=== PATIENT | female | born 1985 | race Caucasian/White ===

== ENCOUNTER 2020-08-08 10:19 | Emergency (ER) | payer OTHER, SELFPAY ==
[2020-08-08 12:26] VITALS: BP 149/98; PULSE 98; RESP 16; TEMP 36.7; O2SAT 100; BMI 31.1
--- NOTE | 2020-08-08 12:48 | ED.DENTAL ---
HPI - Dental/Oral General Chief complaint: Dental/Oral Stated complaint: abcess in mouth Time Seen by Provider: 08/08/20 12:46 Source: patient Mode of arrival: ambulatory Limitations: no limitations History of Present Illness HPI Narrative: 35 y/o female presenting 7 days post tooth extraction presenting with worsening pain and swelling. She was seen by her dentist who performed the procedure 3 days afterwards with worsening pain. Her jaw bone was visible at the extraction site and he told her he might need to shave it down if new gum does not grow over it. She was given Clindamycin and has been taking Ibuprofen for the last 3 days without improvement in the pain. She noticed new swelling and redness behind the site of the extraction that is very tender to touch. She denies facial swelling, MD Complaint: tooth pain Location: Tooth # (18) Onset (ago): day(s) (5) Duration: constant Severity: severe Severity scale (1-10): 10 Relieving factors: NSAIDs Exacerbating factors: chewing, heat and swallowing Treatment prior to arrival: none Related Data Previous Rx's Medication Instructions Recorded amoxicillin-pot clavulanate 1 tab PO BID #14 tab 08/08/20 [Augmentin] fluconazole [Diflucan] 150 mg PO ONCE #1 tab 08/08/20 hydrocodone-acetaminophen 1 tab PO Q6H PRN #8 tab 08/08/20 ibuprofen 600 mg PO Q8H PRN #20 tab 08/08/20 Allergies Allergy/AdvReac Type Severity Reaction Status Date / Time acetaminophen [From Percocet] AdvReac Palpitation Verified 08/08/20 12:32 s morphine AdvReac Palpitation Verified 08/08/20 12:33 s oxycodone [From Percocet] AdvReac Palpitation Verified 08/08/20 12:32 s From DEMEROL AdvReac Intermediate TACHYCARDIA Uncoded 08/08/20 12:31 Review of Systems Review of Systems: Constitutional: No Fever, No Chills ENT/Mouth: No sore throat, No Rhinorrhea, No Swallowing Difficulty, +Dental pain Eyes: No Eye Pain, No Swelling, No Redness Cardiovascular: No Chest Pain, No SOB Respiratory: No Cough, No Sputum Gastrointestinal: No Nausea, No Vomiting, No Diarrhea, No abdominal Pain Neuro: No Weakness, No Numbness, No Dizziness, + Headache Heme/Lymph: No Bruising, + Lymphadenopathy PMFSH Past Medical History Attestation statement: The following information was validated with the patient. Medical History Anxiety Asthma Seasonal allergies Surgical History (Updated 08/08/20 @ 12:30 by Asia Dotson) H/O partial thyroidectomy H/O tubal ligation History of appendectomy Social History Social History Advance Directives: Yes Advance Directives Information Provided: No Advance Directives on File: No Patient : No Physical Exam Vital Signs: Vital Signs: Last Vital Signs Temp 98.0 F 08/08/20 12:26 Pulse 98 08/08/20 12:26 Resp 16 08/08/20 12:26 BP 149/98 H 08/08/20 12:26 Pulse Ox 100 08/08/20 12:26 Body Mass Index 31.1 Const: General: cooperative, healthy appearing and anxious HENMT: Head: Yes normal to inspection, Yes normocephalic and Yes atraumatic Ears: hearing grossly normal bilaterally General nose exam: Normal external nose present Face and sinus: Yes normal facial exam and Yes sinuses nontender Mouth: Normal oral and palatal mucosa present, lip normal, tongue normal, oropharynx normal and moist mucous membranes Teeth and gingiva: abnormal tooth and associated gingiva lower left third molar and gingiva abnormal edematous and tender Throat: Yes posterior oropharynx normal, Yes tonsils normal and Yes uvula midline Eyes: General: appearance normal, both eyes and all related structures Neck: Neck: Yes normal visual inspection, Yes full ROM and Yes no lymphadenopathy Chest: Chest palpation & inspection: normal inspection of the chest Resp: Effort & Inspection: normal respiratory effort and able to speak in complete sentences Extrem: General: Yes normal to inspection Psych: Appearance: grossly normal and well kempt Mental Status: mental status grossly normal Speech and movement: Normal speech and movement present and Clear speech present Course Course Course Narrative: 35 y/o female presenting with dental pain 1 week after extraction. She has swelling, ertythema and tenderness on exam just posterior to the site without area of fluctuance. No facial swelling. Her bone is visible at the site of extraction, likely leading to acute abscess. No drainable collection at this time. Will change to Augmentin and provide short course of narcotic pain medication until she can be seen on Tuesday morning. She is agreeable with plan. Emergency dental numbers provided and patient encouraged to f/u [facility]. Stable for D/C. Discharge Plan Discharge Clinical Impression: Dental abscess Patient Disposition: Home, Self-Care Instructions: Dental Abscess (ED) Additional Instructions: Follow up with a dentist [facility]. Emergency numbers given - try calling them today. Start taking the prescribed antibiotic. Take Ibuprofen 600-800 mg every 6 hours. Take with food. Take Vicoden as needed for severe pain. Do not smoke cigarettes. Do not use straws, or eat hot food. If you have worsening pain, facial swelling, fever, or any other concerns come back to the ER for further evaluation. Prescriptions: New amoxicillin-pot clavulanate [Augmentin] 875-125 mg tablet 1 tab PO BID Qty: 14 RF: 0 ibuprofen 600 mg tablet 600 mg PO Q8H PRN (Reason: pain) Qty: 20 RF: 0 hydrocodone-acetaminophen 5-325 mg tablet 1 tab PO Q6H PRN (Reason: pain) Qty: 8 RF: 0 fluconazole [Diflucan] 150 mg tablet 150 mg PO ONCE Qty: 1 RF: 0 Stand Alone Forms: Dental Emergency Numbers
[2020-08-08] MEDS: Ketorolac Tromethamine 60 MG/2 ML VIAL IM (13:19)
== END 2020-08-08 13:30 | disposition home or self-care (01) ==
PROVIDERS: Emergency Provider Internal Medicine
DX: K12.2 Cellulitis and abscess of mouth (principal); Z79.899 Other long term (current) drug therapy
CPT/HCPCS: 96372; 99284; J1885

== ENCOUNTER 2020-11-06 19:15 | Emergency (ER) | payer OTHER, SELFPAY ==
--- NOTE | ~2020-11-06 | XR_ITS ---
EXAMINATION: XR ANKLE, RIGHT CLINICAL INFORMATION: Fall. Pain. COMPARISON: None TECHNIQUE: 3 views of the right ankle. FINDINGS: The bones and soft tissues are normal. No fracture. Alignment is anatomic. Joint spaces are maintained. No joint effusion. XR/XR ankle RT min 3V IMPRESSION: Normal right ankle.
--- NOTE | ~2020-11-06 | XR_ITS ---
EXAMINATION: 1. LEFT HIP. 2. LEFT FEMUR. 3. LEFT KNEE. 4. LEFT TIBIA AND FIBULA. CLINICAL INFORMATION: Fall. Pain. COMPARISON: None TECHNIQUE: 1. Left hip. Frontal view of pelvis. Cone-down oblique and frontal view of the left hip. 2. Left femur. 2 views 3. Left knee. 3 views. 4. Left lower leg. 2 views FINDINGS: 1. Left hip. No fracture of pelvis. Left hip is normal. There is no fracture dislocation of the hip. 2. Left femur. No fracture of left femur. 3. Left knee. No fracture or dislocation of the knee. There is no joint effusion. 4. Left lower leg. No fracture of the tibia or fibula. Ankle joint is unremarkable. XR/XR hip LT w PEL1V IMPRESSION: 1. Left hip. Normal pelvis and left hip. 2. Left femur. Normal left femur. 3. Left knee. Normal left knee. 4. Left lower leg. Normal left lower leg.
--- NOTE | ~2020-11-06 | XR_ITS ---
EXAMINATION: 1. LEFT HIP. 2. LEFT FEMUR. 3. LEFT KNEE. 4. LEFT TIBIA AND FIBULA. CLINICAL INFORMATION: Fall. Pain. COMPARISON: None TECHNIQUE: 1. Left hip. Frontal view of pelvis. Cone-down oblique and frontal view of the left hip. 2. Left femur. 2 views 3. Left knee. 3 views. 4. Left lower leg. 2 views FINDINGS: 1. Left hip. No fracture of pelvis. Left hip is normal. There is no fracture dislocation of the hip. 2. Left femur. No fracture of left femur. 3. Left knee. No fracture or dislocation of the knee. There is no joint effusion. 4. Left lower leg. No fracture of the tibia or fibula. Ankle joint is unremarkable. XR/XR femur LT 2V IMPRESSION: 1. Left hip. Normal pelvis and left hip. 2. Left femur. Normal left femur. 3. Left knee. Normal left knee. 4. Left lower leg. Normal left lower leg.
--- NOTE | ~2020-11-06 | XR_ITS ---
EXAMINATION: 1. LEFT HIP. 2. LEFT FEMUR. 3. LEFT KNEE. 4. LEFT TIBIA AND FIBULA. CLINICAL INFORMATION: Fall. Pain. COMPARISON: None TECHNIQUE: 1. Left hip. Frontal view of pelvis. Cone-down oblique and frontal view of the left hip. 2. Left femur. 2 views 3. Left knee. 3 views. 4. Left lower leg. 2 views FINDINGS: 1. Left hip. No fracture of pelvis. Left hip is normal. There is no fracture dislocation of the hip. 2. Left femur. No fracture of left femur. 3. Left knee. No fracture or dislocation of the knee. There is no joint effusion. 4. Left lower leg. No fracture of the tibia or fibula. Ankle joint is unremarkable. XR/XR knee LT 2V IMPRESSION: 1. Left hip. Normal pelvis and left hip. 2. Left femur. Normal left femur. 3. Left knee. Normal left knee. 4. Left lower leg. Normal left lower leg.
--- NOTE | ~2020-11-06 | XR_ITS ---
EXAMINATION: 1. LEFT HIP. 2. LEFT FEMUR. 3. LEFT KNEE. 4. LEFT TIBIA AND FIBULA. CLINICAL INFORMATION: Fall. Pain. COMPARISON: None TECHNIQUE: 1. Left hip. Frontal view of pelvis. Cone-down oblique and frontal view of the left hip. 2. Left femur. 2 views 3. Left knee. 3 views. 4. Left lower leg. 2 views FINDINGS: 1. Left hip. No fracture of pelvis. Left hip is normal. There is no fracture dislocation of the hip. 2. Left femur. No fracture of left femur. 3. Left knee. No fracture or dislocation of the knee. There is no joint effusion. 4. Left lower leg. No fracture of the tibia or fibula. Ankle joint is unremarkable. XR/XR tibia fibula LT 2V IMPRESSION: 1. Left hip. Normal pelvis and left hip. 2. Left femur. Normal left femur. 3. Left knee. Normal left knee. 4. Left lower leg. Normal left lower leg.
[2020-11-06 21:34] VITALS: BP 155/92; PULSE 108; RESP 16; TEMP 37.6; O2SAT 100; BMI 32.1
--- NOTE | 2020-11-06 22:55 | ED_ITS ---
HPI - Extremity Injury (Lower) General Chief Complaint: Extremity Injury, Lower Stated Complaint: leg inj Time Seen by Provider: 11/06/20 22:55 Source: patient Mode of arrival: ambulatory Limitations: no limitations History of Present Illness HPI Narrative: 35-year-old female came in for evaluation after sustained a fall while hiking. Patient is complaining of multiple injuries but unable to bear weight on the lef t knee. No head or neck injuries, no LOC. Related Data Previous Rx's Medication Instructions Recorded amoxicillin 875 mg-potassium 1 tab PO BID #14 tab 08/08/20 clavulanate 125 mg tablet (Augmentin) fluconazole 150 mg tablet 150 mg PO ONCE #1 tab 08/08/20 (Diflucan) hydrocodone 5 mg-acetaminophen 325 1 tab PO Q6H PRN #8 tab 08/08/20 mg tablet ibuprofen 600 mg tablet 600 mg PO Q8H PRN #20 tab 08/08/20 Allergies Allergy/AdvReac Type Severity Reaction Status Date / Time acetaminophen [From Percocet] AdvReac Palpitation Verified 11/06/20 21:39 s morphine AdvReac Palpitation Verified 11/06/20 21:39 s oxycodone [From Percocet] AdvReac Palpitation Verified 11/06/20 21:39 s From DEMEROL AdvReac Intermediate TACHYCARDIA Uncoded 11/06/20 21:39 Review of Systems Review of Systems: All other systems are reviewed and are negative Constitutional: Reports as per HPI and Reports no additional constitutional complaints Eyes: Reports as per HPI and Reports no additional eye complaints Reports system reviewed and no additional complaints, except as documented Cardiovascular: Reports as per HPI and Reports no additional cardiovascular complaints Respiratory: Reports as per HPI and Reports no additional respiratory complaints Gastrointestinal: Reports as per HPI and Reports no additional gastrointestinal complaints Genitourinary: Reports no additional female genitourinary complaints Musculoskeletal: Reports no additional musculoskeletal complaints Skin/Breast: Reports system reviewed and no additional complaints, except as docu Psychiatric: Reports no additional psychiatric complaints Endocrine: Reports no additional endocrine complaints Hematologic/Lymphatic: Reports no additional hematologic/lymphatic complaints Allergic/Immunologic: Reports no additional allergic/immunologic complaints Reports system reviewed and no additional complaints, except as documented and Reports Abnormal speech [facility] Past Medical History Medical History Anxiety Asthma Seasonal allergies Surgical History H/O partial thyroidectomy H/O tubal ligation History of appendectomy Social History Social History Advance Directives: No Advance Directives Information Provided: No Patient : No Physical Exam Vital Signs: Vital Signs: Last Vital Signs Temp 99.7 F 11/06/20 21:34 Pulse 108 H 11/06/20 21:34 Resp 16 11/06/20 21:34 BP 155/92 H 11/06/20 21:34 Pulse Ox 100 11/06/20 21:34 Body Mass Index 32.1 Vital signs have been reviewed as appeared to be correct. Blood pressure elevated. Heart rate elevated. Respiration rate normal. Temperature normal. Oxygen saturation normal. Appearance: Alert. Oriented X3. No acute distress. Head: Normal external exam. Normocephalic. Atraumatic. No Melvin signs noted. No raccoon eyes noted Eyes: PERRLA. EOMI. Conjunctiva and sclera normal. Eyelids normal. ENT: TM's Normal. Pharynx normal. Uvula midline. Moist mucous membranes. No trismus noted. No drooling noted. No muffled voice noted. Neck: Normal inspection. Neck supple. FROM. No adenopathy. Thyroid Normal. No meningeal signs. No neck mass noted. CVS: Normal heart rate and rhythm. Heart sound normal. No murmurs noted. Pulses normal throughout. Respiratory: No respiratory distress. Painless inspiration. Breath sounds n ormal. No wheezes/rales/rhonchi noted. Chest nontender. No accessory muscle usage noted or decreased air movement noted. Abdomen: Soft and nontender. Bowel sounds normal in all 4 quadrants. No diste ntion noted. No organomegaly noted. No visible injury noted. Back: No CVA tenderness. Full range of motion noted. Skin: Skin warm and dry. Normal skin color. Normal skin turgor. No rashes/lesions/lacerations noted. Extremities: Right arm 3 x 5 cm area of ecchymosis, no deformity, no step-off, neurovascularly intact. Left knee exam held in a flexion position, patient unable to bear weight on the left knee due to pain. Neuro: Oriented X 3. Cranial nerve exam: II-XII are grossly intact No motor deficit. No sensory deficit. Reflexes normal. Course Course Course Narrative: Assessment and plan. 35-year-old female came in after injured her left lower extremities while hiking. X-ray showed no acute fracture however patient unable to bear weight. Patient stated that she usually have a subtle fracture that only showed by CT or MRI. Since it is 23:00 MRI is not available only CT scan was offered to the patient but patient will not wait for the CT rather to go home and follow-up with PCP and get tested as an outpatient. Ice, NSAIDs, knee immobilizer, and no bear weight crutches, and follow-up with PCP. MDM - Extremity Injury (Lower) Imaging Data Left hip/left femur/left knee/left knee tib-fib: Radiologist's impression: 1. Left hip. No fracture of pelvis. Left hip is normal. There is no fracture dislocation of the hip. 2. Left femur. No fracture of left femur. 3. Left knee. No fracture or dislocation of the knee. There is no joint effusion. 4. Left lower leg. No fracture of the tibia or fibula. Ankle joint is unremarkable.? Discharge Plan Discharge Clinical Impression: Contusion of knee, left, Contusion Patient Disposition: Home, Self-Care Instructions: Contusion in Adults (ED) Prescriptions: No Action amoxicillin-pot clavulanate [Augmentin] 875-125 mg tablet 1 tab PO BID Qty: 14 RF: 0 ibuprofen 600 mg tablet 600 mg PO Q8H PRN (Reason: pain) Qty: 20 RF: 0 hydrocodone-acetaminophen 5-325 mg tablet 1 tab PO Q6H PRN (Reason: pain) Qty: 8 RF: 0 fluconazole [Diflucan] 150 mg tablet 150 mg PO ONCE Qty: 1 RF: 0 Referrals: Physician,Unknown [Primary Care Provider] - 2 days Stand Alone Forms: Work/School Release
[2020-11-06] MEDS: Ibuprofen 600 MG TABLET PO (23:20)
== END 2020-11-06 23:08 | disposition home or self-care (01) ==
PROVIDERS: Emergency Provider Emergency Medicine
DX: S80.02XA Contusion of left knee, initial encounter (principal); S40.021A Contusion of right upper arm, initial encounter; W18.30XA Fall on same level, unspecified, initial encounter; Y93.31 Activity, mountain climbing, rock climbing and wall climbing; Y92.828 Other wilderness area as the place of occurrence of the external cause; Y99.8 Other external cause status
CPT/HCPCS: 73502; 73552; 73560; 73590; 73610; 99283; 99284

== ENCOUNTER 2020-12-26 11:50 | Outpatient (REF) | payer OTHER, SELFPAY | END 2020-12-26 11:51 | disposition home or self-care (01) | LOC: HO.LAB 11:50 | PROVIDERS: Visit Provider Internal Medicine | DX: Z20.822 Contact with and (suspected) exposure to COVID-19 (principal) | CPT/HCPCS: C9803; U0003; U0005 ==

== ENCOUNTER 2022-04-20 13:10 | Outpatient (REF) | payer OTHER, SELFPAY ==
--- NOTE | ~2022-04-20 | XR_ITS ---
EXAMINATION: XR CERVICAL SPINE CLINICAL INFORMATION: Neck pain COMPARISON: None TECHNIQUE: 3 views of the cervical spine were obtained. FINDINGS: There is mild reversal of cervical lordosis. The vertebral heights, alignment and disc heights are normal. No visible acute fracture, dislocation or subluxation seen. The prevertebral and paravertebral soft tissues are normal. XR/XR cervical spine 2V IMPRESSION: Mild reversal of cervical lordosis likely spasm. No visible acute fracture, dislocation or subluxation seen.
== END 2022-04-20 13:11 | disposition home or self-care (01) ==
LOC: HO.XRAY 13:10
PROVIDERS: PCP Internal Medicine; Visit Provider Psychiatry & Neurology Neurology
DX: M54.2 Cervicalgia (principal)
CPT/HCPCS: 72040

== ENCOUNTER 2022-06-09 08:03 | Outpatient (REF) | payer OTHER, SELFPAY ==
--- NOTE | ~2022-06-09 | XR_ITS ---
EXAMINATION: XR SACROILIAC JOINTS CLINICAL INFORMATION: Low back pain. COMPARISON: None available. TECHNIQUE: 3 views of the sacroiliac joints FINDINGS: Bones and soft tissues are normal. No fracture. Alignment is anatomic. Sacroiliac joint spaces are well-maintained without erosions or surrounding sclerosis. XR/XR sacroiliac joint min 3V IMPRESSION: Normal sacroiliac joints.
== END 2022-06-09 08:04 | disposition home or self-care (01) ==
LOC: HO.XRAY 08:03
PROVIDERS: PCP Internal Medicine; Visit Provider Internal Medicine Rheumatology
DX: M25.50 Pain in unspecified joint (principal); M47.816 Spondylosis without myelopathy or radiculopathy, lumbar region; M47.814 Spondylosis without myelopathy or radiculopathy, thoracic region
CPT/HCPCS: 72202; 99202

== ENCOUNTER 2022-09-17 10:17 | Emergency (ER) | payer OTHER, SELFPAY ==
--- NOTE | ~2022-09-17 | CT_ITS ---
EXAMINATION: CT FACIAL BONES WITHOUT CONTRAST CLINICAL INFORMATION: Pain. Recent dental procedure on right side. Concern for mandibular dislocation. COMPARISON: None available. TECHNIQUE: Noncontrast multidetector CT imaging examination of facial bones is performed. Axial images and multiplanar reformatted images are reviewed. This CT examination was performed using dose optimization techniques as appropriate, variously including the following: *Automated exposure control *Adjustment of mA and/or kV according to patient size (this includes techniques or standardized protocols for targeted exams where dose is matched to indication/reason for exam; i.e. extremities or head) *Use of iterative reconstruction technique DLP: 303 mGy-cm FINDINGS: No evidence of acute maxillofacial bone injury. The globes and orbital piedra, including lamina papyracea, are intact. The orbital apex, optic canals, and retrobulbar fat planes are normal. The maxilla, mandible and temporomandibular joints are intact. At the left TMJ, there appears to be mild osteoarthrosis with articular surface flattening of mandibular condyle and very small subchondral cyst. The right temporomandibular joint is unremarkable. Alignment is normal at each TMJ. No periodontal disease. Nasal bones, pterygoid plates and zygomatic arches are normal. The paranasal sinuses are well-aerated and the ostiomeatal units are patent. No air-fluid levels in the paranasal sinuses. No evidence of focal soft tissue edema or hematoma within the visualized portions of the face and neck. The visualized lymph nodes are in the normal size range. The parotid and submandibular glands are normal. Incidentally noted is a small simple appearing cystic focus in the left sublingual area measuring 0.8 cm transverse. There are no acute inflammatory changes in the submandibular or sublingual regions. The visualized pharynx is normal. The partially visualized intracranial anatomy is normal. CT/CT facial bones wo IV con IMPRESSION: * No acute imaging findings within the maxillofacial region. No evidence of soft tissue abscess. * No facial bone fracture. Alignment is normal at temporomandibular joints. 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 * No evidence of active periodontal disease or sinusitis.
[2022-09-17 10:27] VITALS: BP 155/103; PULSE 102; RESP 20; TEMP 36.7; O2SAT 99; BMI 32.1
--- NOTE | 2022-09-17 10:34 | ED_ITS ---
HPI - General Adult General Chief complaint: Dental/Oral Stated complaint: Displaced Jaw Time Seen by Provider: 09/17/22 10:33 Source: patient Mode of arrival: ambulatory Limitations: no limitations History of Present Illness HPI narrative: Patient is a 37 year old assigned female at with a history of anxiety, asthma, and fibromyalgia presenting to the emergency department today with right sided jaw pain. Patient states that she had a recent root canal of the right molar and it does not have a crown on it. Patient states that she is now having issues opening her mouth. Patient states that she went and saw her dentist again who suggested her jaw may be dislocated and recommended that she come to the ER. Patient denies any dizziness, lightheadedness, abdominal pain, nausea, vomiting, fever, chills, blurry vision, double vision, loss of vision, chest pain, difficulty breathing, shortness of breath, back pain, night sweats, pain with urination, increased urinary frequency, increased urinary urgency, blood in her urine or stool, syncope or a near syncopal episode, recent trauma or falls, bowel incontinence, bladder incontinence, bowel retention, bladder retention, or any other complaints at this time. Onset (ago): day(s) Location: mouth Radiation: non-radiation Severity: mild Severity scale (1-10): 3 Quality: aching Pain Consistency: intermittent Relieving factors: none Exacerbating factors: none Associated symptoms: denies other symptoms Treatments prior to arrival: none Related Data Home Medications Medication Instructions Recorded Confirmed atorvastatin 10 mg tablet 10 mg PO DAILY 05/31/22 06/09/22 cetirizine 10 mg tablet 10 mg PO DAILY PRN allergies 05/31/22 06/09/22 fluticasone propionate 110 1 puff inhalation BID 05/31/22 06/09/22 mcg/actuation HFA aerosol inhaler (Flovent HFA) fluticasone propionate 50 2 spray intranasal DAILY 05/31/22 06/09/22 mcg/actuation nasal spray,suspension norethindrone acetate 5 mg tablet 5 mg PO DAILY 05/31/22 06/09/22 omeprazole 40 mg capsule,delayed 40 mg PO DAILY 05/31/22 06/09/22 release propranolol 10 mg tablet 10 mg PO BID 05/31/22 06/09/22 sumatriptan succinate 50 mg tablet 50 mg PO 05/31/22 06/09/22 fluoxetine 40 mg capsule 80 mg PO DAILY 06/09/22 06/09/22 gabapentin 100 mg capsule 400 mg PO BEDTIME 06/09/22 06/09/22 Previous Rx's Medication Instructions Recorded amoxicillin 875 mg-potassium 1 tab PO BID #14 tabs 08/08/20 clavulanate 125 mg tablet (Augmentin) fluconazole 150 mg tablet 150 mg PO ONCE #1 tab 08/08/20 (Diflucan) hydrocodone 5 mg-acetaminophen 325 1 tab PO Q6H PRN pain #8 tabs 08/08/20 mg tablet ibuprofen 600 mg tablet 600 mg PO Q8H PRN pain #20 tabs 08/08/20 cyclobenzaprine 5 mg tablet 5 mg PO TID PRN muscle spasm 7 09/17/22 days #21 tabs Allergies Allergy/AdvReac Type Severity Reaction Status Date / Time meperidine [From Demerol] AdvReac Unknown Unknown Verified 06/09/22 09:16 acetaminophen [From Percocet] AdvReac Palpitation Verified 06/09/22 09:16 s morphine AdvReac Palpitation Verified 06/09/22 09:16 s oxycodone [From Percocet] AdvReac Palpitation Verified 06/09/22 09:16 s From DEMEROL AdvReac Intermediate TACHYCARDIA Uncoded 06/09/22 09:16 Review of Systems Constitutional: Constitutional: Reports no additional constitutional complaints, Denies chills, Denies fever(s) and Denies night sweats Eyes: Eyes: Reports no additional eye complaints, Denies blurry vision, Denies change in vision, Denies diplopia, Denies eye discharge, Denies loss of vision and Denies eye pain ENT: Denies dizziness and Reports mouth pain Cardiovascular: Cardiovascular: Reports no additional cardiovascular complaints, Denies chest pain, Denies lightheadedness, Denies Loss of Consciousness and Denies dyspnea Respiratory: Respiratory: Reports no additional respiratory complaints and Denies dyspnea Gastrointestinal: Gastrointestinal: Reports no additional gastrointestinal complaints, Denies abdominal pain, Denies melena, Denies hematochezia, Denies change in bowel habits and Denies change in stool character Genitourinary: Genitourinary: Denies hematuria, Denies urinary frequency, Denies dysuria, Denies urinary incontinence, Denies urinary hesitancy and Denies urinary urgency Musculoskeletal: Musculoskeletal: Reports no additional musculoskeletal complaints, Denies numbness and Denies tingling Neurologic: Denies dizziness, Denies loss of vision, Denies numbness and Denies tingling Psychiatric: Psychiatric: Reports no additional psychiatric complaints Endocrine: Endocrine: Reports no additional endocrine complaints Hematologic/Lymphatic: Hematologic/Lymphatic: Reports no additional hematologic/lymphatic complaints Allergic/Immunologic: Allergic/Immunologic: Reports no additional allergic/immunologic complaints [facility] Past Medical History Attestation statement: The following information was validated with the patient. Source: old records reviewed and nursing notes reviewed Medical History Anxiety Anxiety Asthma Asthma GERD (gastroesophageal reflux disease) OCD (obsessive compulsive disorder) Polyarthralgia Seasonal allergies Surgical History H/O partial thyroidectomy H/O tubal ligation History of appendectomy History of subtotal thyroidectomy Hx of appendectomy Hx of colonoscopy Hx of tubal ligation Family History Family History Mother Substance abuse Alcohol abuse Social History Social History Alcohol intake: current Alcohol intake frequency: does not drink Patient Tobacco Use Status: Former Tobacco user Quit Date: 200 days ago Advance Directives: No Advance Directives Information Provided: No Physical Exam ED Vital Signs: Vital Signs - 24 hr 09/17/22 10:27 Temperature 98.1 F Pulse Rate 102 H Respiratory Rate 20 Blood Pressure 155/103 H Pulse Oximetry 99 Oxygen Delivery Method Room Air BMI result Body Mass Index 32.1 Const General: cooperative, no acute distress, alert and awake Nutritional Appearance: well nourished Orientation/consciousness: patient oriented x3 Limitations: no limitations HENMT Head: Yes normal to inspection and Yes atraumatic Ears: hearing grossly normal bilaterally and external ears normal General nose exam: Normal external nose present, no nasal discharge noted and no epistaxis Face and sinus: Yes normal facial exam, No abrasion and No laceration Mouth: Normal oral and palatal mucosa present, no drooling, no muffled voice and restricted motion Eyes General: appearance normal, both eyes and all related structures Periorbital: periorbital findings normal Eyelids: Yes eyelids normal Conjunctivae: conjunctivae normal Pupils: Equal, round and reactive pupils present EOM: EOMs intact bilaterally Neck Neck: Yes normal visual inspection, Yes full ROM and Yes no lymphadenopathy Chest Chest palpation & inspection: normal inspection of the chest Resp Effort & Inspection: normal respiratory effort and able to speak in complete sentences GI Inspection: Yes normal to inspection Neuro General: patient oriented x3 and moves all extremities Cranial nerves: Yes Equal, round and reactive pupils present Cognition (Neuro): normal cognition Motor exam (neuro): 5/5 motor strength present throughout Sensory Exam: Normal double simultaneous stimulation for sensation Coordination: [id number] test normal Extrem General: Yes normal to inspection, Yes full ROM and Yes capillary refill normal Psych Appearance: grossly normal Mental Status: mental status grossly normal Affect: normal affect Attitude: cooperative Thought process: Normal thought process present Thought content: Normal thought content present Insight: Good insight present (Psych) Medical Decision Making Medical Decision Making MDM Narrative: Patient is a 37 year old assigned female at with a history of anxiety, asthma, and fibromyalgia presenting to the emergency department today with right sided jaw pain and concern for a dislocated jaw. Patient's physical exam showed restricted ability to open her mouth secondary to pain but was otherwise unremarkable. Patient's blood work was unremarkable. Patient's facial CT showed no acute process. Patient's clinical presentation is most consistent with TMJ dysfunction of the right side. I explained my physical exam findings as well as all test results to the patient. I answered all questions asked by the patient. I stressed the importance of the patient taking her medication as prescribed. I stressed the importance of the patient following up with her primary care provider and a dentist. I stressed the importance of the patient returning to the emergency department immediately if her symptoms were to worsen or if she were to develop any dizziness, shortness of breath, difficulty breathing, chest pain, blurry vision, loss of vision, nausea, vomiting, abdominal pain, fever, chills, back pain, or any other complaints. Patient verbalized agreement and understanding with this treatment plan and discharge. Differential Diagnosis Differential Diagnoses: The differential diagnosis associated with the presentation includes Abscess Jaw pain Jaw dislocation TMJ dysfunction Admission/Observation Consideration of admission/observation: Escalation of care including admission/observation considered Patient would have been admitted to the hospital had her work up had any findings where hospital admission was appropriate and her clinical presentation warranted hospital admission. Lab Data [facility] Lab Attestation statement: I reviewed the patient's lab results. My interpretation of these studies and their corresponding values is that they are grossly normal. 09/17/22 10:53 09/17/22 10:53 Labs: Lab Results 09/17/22 09/17/22 09/17/22 Range/Units 10:53 10:53 10:53 WBC 9.7 (4.8-10.8) X10*3/uL RBC 5.60 H (4.20-5.50) X10*6/uL Hgb 16.1 H (12.0-16.0) g/dl Hct 47.6 H (37.0-47.0) % MCV 85.0 (80.0-98.0) fL MCH 28.8 (27.0-33.0) pg MCHC 33.8 (31.0-35.0) g/dl RDW 13.4 (11.0-16.0) % Plt Count 330 (160-400) X10*3/uL MPV 10.1 (9.4-12.3) fL Immature Gran % (Auto) 0.3 (0.0-0.4) % Neut % (Auto) 56.7 (45-73) % Lymph % (Auto) 33.1 (20-40) % [place] % (Auto) 6.0 (2-11) % Eos % (Auto) 2.8 (0-4) % Baso % (Auto) 1.1 (0-2) % Lymph # (Auto) 3.2 (1.2-4.9) X10*3/uL [place] # (Auto) 0.6 (0.1-1.2) X10*3/uL Eos # (Auto) 0.3 (0.0-0.4) X10*3/uL Baso # (Auto) 0.1 (0.0-0.2) X10*3/uL Abs Immat Gran (auto) 0.03 (0.00-0.03) X10*3/uL Absolute Neuts (auto) 5.5 (2.0-8.3) x10*3/uL Absolute Nucleated RBC 0.000 (0.0-0.012) X10*3/uL Nucleated RBC % (auto) 0.0 (0.0-0.2) /100WBC ESR 2 (0-20) MM/HR Sodium 138 (135-145) mmol/L Potassium 4.4 (3.3-5.1) mmol/L Chloride 106 (96-108) mmol/L Carbon Dioxide 24 (22-29) mmol/L Anion Gap 12 (12-20) BUN 11 (9-16) mg/dL Creatinine 0.76 (0.5-1.4) mg/dL Estim Creat Clear Calc 97.1 Estimated GFR > 60 Random Glucose 108 (60-115) mg/dL Calcium 9.8 (8.4-10.2) mg/dL Total Bilirubin 0.4 (0.0-1.0) mg/dL AST 30 (5-31) U/L ALT 52 H (0-31) U/L Alkaline Phosphatase 91 (39-117) U/L C-Reactive Protein 0.25 (< or = 0.50) mg/dL Total Protein 7.7 (6.5-8.0) g/dL Albumin 4.6 (3.5-5.0) g/dL Beta HCG, Quant mIU/mL 09/17/22 Range/Units 10:53 WBC (4.8-10.8) X10*3/uL RBC (4.20-5.50) X10*6/uL Hgb (12.0-16.0) g/dl Hct (37.0-47.0) % MCV (80.0-98.0) fL MCH (27.0-33.0) pg MCHC (31.0-35.0) g/dl RDW (11.0-16.0) % Plt Count (160-400) X10*3/uL MPV (9.4-12.3) fL Immature Gran % (Auto) (0.0-0.4) % Neut % (Auto) (45-73) % Lymph % (Auto) (20-40) % [place] % (Auto) (2-11) % Eos % (Auto) (0-4) % Baso % (Auto) (0-2) % Lymph # (Auto) (1.2-4.9) X10*3/uL [place] # (Auto) (0.1-1.2) X10*3/uL Eos # (Auto) (0.0-0.4) X10*3/uL Baso # (Auto) (0.0-0.2) X10*3/uL Abs Immat Gran (auto) (0.00-0.03) X10*3/uL Absolute Neuts (auto) (2.0-8.3) x10*3/uL Absolute Nucleated RBC (0.0-0.012) X10*3/uL Nucleated RBC % (auto) (0.0-0.2) /100WBC ESR (0-20) MM/HR Sodium (135-145) mmol/L Potassium (3.3-5.1) mmol/L Chloride (96-108) mmol/L Carbon Dioxide (22-29) mmol/L Anion Gap (12-20) BUN (9-16) mg/dL Creatinine (0.5-1.4) mg/dL Estim Creat Clear Calc Estimated GFR Random Glucose (60-115) mg/dL Calcium (8.4-10.2) mg/dL Total Bilirubin (0.0-1.0) mg/dL AST (5-31) U/L ALT (0-31) U/L Alkaline Phosphatase (39-117) U/L C-Reactive Protein (< or = 0.50) mg/dL Total Protein (6.5-8.0) g/dL Albumin (3.5-5.0) g/dL Beta HCG, Quant < 2 mIU/mL Independent Interpretation I performed an independent interpretation of an: CT Scan Interpretation: My interpretation is in agreement with the radiologist's impression of this imaging study. EXAMINATION: CT FACIAL BONES WITHOUT CONTRAST CLINICAL INFORMATION: Pain. Recent dental procedure on right side. Concern for mandibular dislocation. COMPARISON: None available. TECHNIQUE: Noncontrast multidetector CT imaging examination of facial bones is performed. Axial images and multiplanar reformatted images are reviewed.? This CT examination was performed using dose optimization techniques as appropriate, variously including the following: *Automated exposure control *Adjustment of mA and/or kV according to patient size (this includes techniques or standardized protocols for targeted exams where dose is matched to indication/reason for exam; i.e. extremities or head) *Use of iterative reconstruction technique DLP: 303 mGy-cm FINDINGS: No evidence of acute maxillofacial bone injury. The globes and orbital piedra, including lamina papyracea, are intact. The orbital apex, optic canals, and retrobulbar fat planes are normal. The maxilla, mandible and temporomandibular joints are intact. At the left TMJ, there appears to be mild osteoarthrosis with articular surface flattening of mandibular condyle and very small subchondral cyst. The right temporomandibular joint is unremarkable. Alignment is normal at each TMJ. No periodontal disease. Nasal bones, pterygoid plates and zygomatic arches are normal. The paranasal sinuses are well-aerated and the ostiomeatal units are patent. No air-fluid levels in the paranasal sinuses. No evidence of focal soft tissue edema or hematoma within the visualized portions of the face and neck. The visualized lymph nodes are in the normal size range. The parotid and submandibular glands are normal. Incidentally noted is a small simple appearing cystic focus in the left sublingual area measuring 0.8 cm transverse. There are no acute inflammatory changes in the submandibular or sublingual regions. The visualized pharynx is normal. The partially visualized intracranial anatomy is normal. CT/CT facial bones wo IV con IMPRESSION: *? No acute imaging findings within the maxillofacial region. No evidence of soft tissue abscess. *? No facial bone fracture. Alignment is normal at temporomandibular joints. *? 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 *? No evidence of active periodontal disease or sinusitis. Dictated By: Benedicto Koenig MD Signed By: Electronically signed by Benedicto Koenig MD 09/17/22 2296 Radiology Impression Discussion of test interpretation with radiology: I have reviewed the radiologist's reading. Prescription Management I considered prescription management with: Pain Medication (pain medication prescribed.) Discharge Plan Discharge Clinical Impression: TMJ dysfunction Patient Disposition: Home, Self-Care Instructions: Temporomandibular Disorder (ED) Additional Instructions: Follow up with your primary care provider and your dentist. Return to the emergency department immediately if your symptoms worsen or if you develop any dizziness, shortness of breath, difficulty breathing, chest pain, blurry vision, loss of vision, nausea, vomiting, abdominal pain, fever, chills, back pain, or any other complaints. Prescriptions: New cyclobenzaprine 5 mg tablet 5 mg PO TID PRN (Reason: muscle spasm) 7 Days Qty: 21 0RF No Action amoxicillin-pot clavulanate [Augmentin] 875-125 mg tablet 1 tab PO BID Qty: 14 0RF ibuprofen 600 mg tablet 600 mg PO Q8H PRN (Reason: pain) Qty: 20 0RF hydrocodone-acetaminophen 5-325 mg tablet 1 tab PO Q6H PRN (Reason: pain) Qty: 8 0RF fluconazole [Diflucan] 150 mg tablet 150 mg PO ONCE Qty: 1 0RF propranolol 10 mg tablet 10 mg PO BID norethindrone acetate 5 mg tablet 5 mg PO DAILY fluticasone propionate [Flovent HFA] 110 mcg/actuation HFA aerosol inhaler 1 puff inhalation BID fluticasone propionate 50 mcg/actuation spray,suspension 2 spray intranasal DAILY cetirizine 10 mg tablet 10 mg PO DAILY PRN (Reason: allergies) omeprazole 40 mg capsule,delayed release(DR/EC) 40 mg PO DAILY sumatriptan succinate 50 mg tablet 50 mg PO atorvastatin 10 mg tablet 10 mg PO DAILY fluoxetine 40 mg capsule 80 mg PO DAILY gabapentin 100 mg capsule 400 mg PO BEDTIME Referrals: Tarik Perez III, MD [Primary Care Provider] - Print Language: Welsh
[2022-09-17 10:58] LABS: MANUAL DIFF FLAG NO
[2022-09-17 11:01] LABS: Basophils Absolute Auto 0.1 X10*3/uL (0.0-0.2); Basophils Percent Auto 1.1 % (0-2); Eosinophils Absolute Auto 0.3 X10*3/uL (0.0-0.4); Eosinophils Percent Auto 2.8 % (0-4); Hematocrit 47.6 % (37.0-47.0); Hemoglobin 16.1 g/dl (12.0-16.0); Imm Gran Abs Auto 0.03 X10*3/uL (0.00-0.03); Imm Gran Pct Auto 0.3 % (0.0-0.4); Lymphocytes Absolute Auto 3.2 X10*3/uL (1.2-4.9); Lymphocytes Percent Auto 33.1 % (20-40); Mean Corpuscular HGB Conc 33.8 g/dl (31.0-35.0); Mean Corpuscular Hemoglobin 28.8 pg (27.0-33.0); Mean Platelet Volume 10.1 fL (9.4-12.3); Monocytes Absolute Auto 0.6 X10*3/uL (0.1-1.2); Neutrophils Absolute Auto 5.5 x10*3/uL (2.0-8.3); Neutrophils Percent Auto 56.7 % (45-73); Platelet Count 330 X10*3/uL (160-400); Red Cell Distribution Width 13.4 % (11.0-16.0); White Blood Count 9.7 X10*3/uL (4.8-10.8)
[2022-09-17 11:18] LABS: Alanine Aminotransferase 52 U/L (0-31); Albumin Level 4.6 g/dL (3.5-5.0); Alkaline Phosphatase 91 U/L (39-117); Anion Gap 12 (12-20); Aspartate Amino Transferase 30 U/L (5-31); Bilirubin Total 0.4 mg/dL (0.0-1.0); Blood Urea Nitrogen 11 mg/dL (9-16); C Reactive Protein 0.25 mg/dL (< or = 0.50); Calcium 9.8 mg/dL (8.4-10.2); Carbon Dioxide 24 mmol/L (22-29); Chloride 106 mmol/L (96-108); Creatinine Clr Calc Pharmacy 97.1; Estimated Glomerular Filt Rate > 60; Glucose Random 108 mg/dL (60-115); Potassium 4.4 mmol/L (3.3-5.1); Sodium 138 mmol/L (135-145); Total Protein 7.7 g/dL (6.5-8.0)
[2022-09-17 11:30] LABS: HCG Quantitative < 2 mIU/mL
[2022-09-17 11:42] LABS: Erythrocyte Sedimentation Rate 2 MM/HR (0-20)
== END 2022-09-17 13:07 | disposition home or self-care (01) ==
PROVIDERS: Physician Assistant Medical; Emergency Provider Emergency Medicine Emergency Medical Services; PCP Internal Medicine
DX: M26.602 Left temporomandibular joint disorder, unspecified (principal); R68.84 Jaw pain
CPT/HCPCS: 36415; 70486; 80053; 84702; 85025; 85652; 86140; 99282; 99284

== ENCOUNTER 2024-07-24 11:14 | Emergency (ER) | payer BC, SELFPAY ==
--- NOTE | ~2024-07-24 | CT_ITS ---
EXAMINATION: CT FACIAL BONES WITH CONTRAST CLINICAL INFORMATION: Severe left maxillary pain, known sinus disease left side, worsening pain despite 2 courses of antibiotics. Mild Left globe ptosis. Rule out orbital cellulitis. COMPARISON: 09/17/2022. TECHNIQUE: Spiral CT imaging of the maxillofacial bones performed in axial plane without contrast. Multiplanar reformatted images were constructed from the axial data set. This CT examination was performed using dose optimization techniques as appropriate, variously including the following: *Automated exposure control *Adjustment of mA and/or kV according to patient size (this includes techniques or standardized protocols for targeted exams where dose is matched to indication/reason for exam; i.e. extremities or head) *Use of iterative reconstruction technique FINDINGS: There is complete opacification of left maxillary sinus again demonstrated, with enhancing circumferential thickened mucosa. Origin may be related to 2 radicular cyst/periapical lucencies involving the palatal and buccal root tips of tooth #13, and #14. (Series 6, image [id number]). (Series 3, image 89). Cannot exclude minimal bony erosion of the medial left maxillary sinus wall versus extreme bony thinning. There is complete opacification of the left maxillary ostium. In addition there is complete opacification of the left anterior ethmoid air cells, extending into the left frontal recess. The left frontal recess is obstructed. There is no evidence of preseptal or postseptal cellulitis of either globe or orbit. The intraconal, conal, and extraconal structures of both orbits appear normal. No significant nasal septal deviation. Imaged intracranial structures demonstrate no abnormal mass effect, ventriculomegaly, edema, or abnormal enhancement. No space-occupying hemorrhage. The parapharyngeal fat planes, ophthalmic technician spaces, salivary glands, tongue, tongue base, and imaged mucosal space appear normal. Osseous structures demonstrate mild to moderate left and mild right degenerative TM joint arthritis. No acute fractures or suspicious bone lesions. The pituitary appears normal. Skull base is intact. The imaged calvarium is normal. Imaged mastoids and tympanic cavities are aerated normally. CT/CT facial bones w IV con IMPRESSION: 1. Complete opacification left maxillary sinus with thickened enhancing circumferential mucosa, extreme thinning of the medial maxillary sinus wall, with extension of the inflammatory soft tissue mildly into the left middle meatus with opacification of the left anterior ethmoid air cells, involving and obstructing the left frontal recess. The left maxillary ostium is completely obstructed. 2. Origin of left maxillary sinus disease appears to be related to periapical abscesses/radicular cysts of the palatal and buccal root tips of tooth #13, and #14, which have ruptured into the left maxillary antrum. 3. There is no evidence of orbital cellulitis or abscess. Electronically signed by: Warner Barkley MD 07/24/2024 02:17 PM EDT RP
[2024-07-24 11:19] VITALS: BP 140/74; PULSE 130; RESP 16; TEMP 37; O2SAT 98; BMI 33.9
--- NOTE | 2024-07-24 11:29 | ED.GENADULT ---
HPI - General Adult General Chief complaint: General Medical Stated complaint: Sinus infection, facial/neck pain Time Seen by Provider: 07/24/24 11:49 History of Present Illness ED Provider: Bulmaro Gardner MD HPI narrative: She reports early June she started getting left-sided facial pain in the setting of upper respiratory infection that got worse. She reports outpatient doctor starting Bactrim which she finished subsequently she still had left facial pain had a CT done on the 05 of July that showed opacification left maxillary sinus with no other complications. She then began Levaquin which she finished about a week and a half ago. She is still having severe pain left face no nasal discharge or epistaxis. No facial injuries. She does have some left eye pain denies diplopia or headache. She is not on any immunocompromising medications. Prescription meds: Fluoxetine, fluticasone, cyclobenzaprine, cetirizine statin, norethindrone, atenolol, omeprazole, sumatriptan Related Data Home Medications ?Medication ?Instructions ?Recorded ?Confirmed atorvastatin 10 mg tablet 10 mg PO DAILY 05/31/22 06/09/22 cetirizine 10 mg tablet 10 mg PO DAILY PRN allergies 05/31/22 06/09/22 fluticasone propionate 110 1 puff inhalation BID 05/31/22 06/09/22 mcg/actuation HFA aerosol inhaler (Flovent HFA) fluticasone propionate 50 2 spray intranasal DAILY 05/31/22 06/09/22 mcg/actuation nasal spray,suspension norethindrone acetate 5 mg tablet 5 mg PO DAILY 05/31/22 06/09/22 omeprazole 40 mg capsule,delayed 40 mg PO DAILY 05/31/22 06/09/22 release propranolol 10 mg tablet 10 mg PO BID 05/31/22 06/09/22 sumatriptan succinate 50 mg tablet 50 mg PO 05/31/22 06/09/22 fluoxetine 40 mg capsule 80 mg PO DAILY 06/09/22 06/09/22 gabapentin 100 mg capsule 400 mg PO BEDTIME 06/09/22 06/09/22 Previous Rx's ?Medication ?Instructions ?Recorded amoxicillin 875 mg-potassium 1 tab PO BID #14 tabs 08/08/20 clavulanate 125 mg tablet (Augmentin) fluconazole 150 mg tablet 150 mg PO ONCE #1 tab 08/08/20 (Diflucan) hydrocodone 5 mg-acetaminophen 325 1 tab PO Q6H PRN pain #8 tabs 08/08/20 mg tablet ibuprofen 600 mg tablet 600 mg PO Q8H PRN pain #20 tabs 08/08/20 cyclobenzaprine 5 mg tablet 5 mg PO TID PRN muscle spasm 7 09/17/22 days #21 tabs amoxicillin 875 mg-potassium 1 tab PO BID 7 days #14 tabs 07/24/24 clavulanate 125 mg tablet oxycodone 5 mg tablet 5 mg PO Q6H PRN pain #3 tabs 07/25/24 Allergies Allergy/AdvReac Type Severity Reaction Status Date / Time meperidine [From Demerol] AdvReac Unknown Unknown Verified 07/24/24 11:19 acetaminophen [From Percocet] AdvReac Palpitation Verified 07/24/24 11:19 s morphine AdvReac Palpitation Verified 07/24/24 11:19 s oxycodone [From Percocet] AdvReac Palpitation Verified 07/24/24 11:19 s From DEMEROL AdvReac Intermediate TACHYCARDIA Uncoded 07/24/24 11:19 PMFSH Past Medical History Medical History Anxiety Anxiety Asthma Asthma GERD (gastroesophageal reflux disease) OCD (obsessive compulsive disorder) Polyarthralgia Seasonal allergies Surgical History H/O partial thyroidectomy H/O tubal ligation History of appendectomy History of subtotal thyroidectomy Hx of appendectomy Hx of colonoscopy Hx of tubal ligation Family History Family History Mother Substance abuse Alcohol abuse Social History Social History Alcohol intake: current Alcohol intake frequency: does not drink Patient Tobacco Use Status: Former Tobacco user Advance Directives: No Advance Directives Information Provided: Yes Physical Exam ED Vital Signs: Vital Signs - 24 hr 07/24/24 11:19 07/24/24 14:48 07/24/24 14:53 Temperature 98.6 F 98.7 F 98.7 F Pulse Rate 130 H 111 H 111 H Respiratory Rate 16 20 20 Blood Pressure 140/74 H 155/106 H 155/106 H Pulse Oximetry 98 99 99 Oxygen Delivery Method Room Air Room Air Room Air BMI result Body Mass Index 33.9 Const Other: EXAM: Gen: Alert, awake, appears uncomfortable not toxic or ill-appearing Head: Atraumatic Eyes: Anicteric, Normal conjunctiva. EOMI. Pupils 2-3 mm symmetric and reactive. Question left mild ptosis versus baseline appearance ENT: Moist mucosa, no pallor. ?Significant tenderness of the left side of the face. No proptosis or facial erythema or fluctuance. Neck supple no lymphadenopathy. Mildly tender left submandibular region. Neck: Supple. Respiratory: Breathing comfortably, No distress.Clear to auscultation bilaterally, symmetric chest expansion, No wheeze, rales, ronchi. Cardiovascular: Regular rate and rhythm. No murmurs or rub. Well perfused periphery, warm extremities. No edema. ? Abdominal: Soft, no objective distension. No palpable masses or obvious organomegaly. No focal tenderness, no guarding, no rebound tenderness or other peritoneal findings. : No flank tenderness. Neuro: Alert. Gross movement of all extremities intact. ? Vital signs: See flowsheet Course Course Course Narrative: RME: 39 year female presents to ED for chronic left maxillary sinus that has been painful for 1 month. Patient had a CAT scan June which shows complete obliteration and opacification of left maxillary sinus. Patient does not have appointment with ENT until December. Patient states pitting got worse yesterday with left facial jaw, down to her left neck. Patient denies any drooling, change in voice, neck swelling chest pain or shortness of breath. Positive for maxillary sinus tenderness on palpation. Basic labs ordered Reevaluation(s) Reevaluation #1: 07/25/2024 1548 Hermelinda Jackman PA-C ---> Patient called and requested her medication be sent to the [facility] in [place]. Patient also requested a small amount of medication for pain. Prescriptions sent and patient told to follow up with her ENT / dentist as directed. Medications Administered Discontinued Medications Generic Name Dose Route Start Last Admin Trade Name Freq PRN Reason Stop Dose Admin Amoxicillin/Clavulanate Potassium 875 mg 07/24/24 12:28 07/24/24 14:32 Amoxicillin/Potassium Clav 875 Mg Tablet PO 07/24/24 12:29 875 mg ONCE ONE Administration Iohexol 100 ml 07/24/24 13:52 07/24/24 13:52 Iohexol 350 Mg/Ml 100 Ml Infus..Btl IV 07/24/24 13:53 85 ml ONCE ONE Administration Ketorolac Tromethamine 15 mg 07/24/24 12:04 07/24/24 12:14 Ketorolac Tromethamine 15 Mg/Ml Vial IVPUSH 07/24/24 12:05 15 mg ONCE ONE Administration Oxymetazoline HCl 2 spray 07/24/24 12:06 07/24/24 12:14 Oxymetazoline Hcl 0.05 % Nasal 15 Ml [place] NOSTRIL-B 07/24/24 12:07 2 spray ONCE ONE Administration Pseudoephedrine HCl 30 mg 07/24/24 12:06 07/24/24 12:15 Pseudoephedrine Hcl 30 Mg Tablet PO 07/24/24 12:07 Not Given ONCE ONE Medical Decision Making Medical Decision Making MDM Narrative: 39-year-old female with persistent severe left maxillary pain. She shows me the impression section of CT done at an outside hospital on July 05 of this year which showed complete opacification of the left maxillary sinus I do not have access to these images. She appears quite uncomfortable and quite tender in the left face. I questioned ptosis in the left side but there is no diplopia. CT with contrast reveals the findings suggestive of continued severe left maxillary sinusitis it is felt to be odontogenic but she has no caries or recent dental work nor gingival inflammation but her teeth are slightly tender difficult to tell whether the maxillary sinusitis was 1st or this is extension inferiorly. Patient does have a follow up appointment on the 17 of August with ENT I have asked her to call several places to see if they can get an expedited follow-up. We will start her on Augmentin discussed oxymetazoline nasal rinses analgesia for home. There is no evidence of orbital involvement or entrapment Lab Data 07/24/24 13:09 07/24/24 13:09 Labs: Lab Results 07/24/24 Range/Units 13: WBC 10.0 (4.8-10.8) X10*3/uL RBC 5.23 (4.20-5.50) X10*6/uL Hgb 15.2 (12.0-16.0) g/dl Hct 44.2 (37.0-47.0) % MCV 84.5 (80.0-98.0) fL MCH 29.1 (27.0-33.0) pg MCHC 34.4 (31.0-35.0) g/dl RDW 14.2 (11.0-16.0) % Plt Count 307 (160-400) X10*3/uL MPV 10.2 (9.4-12.3) fL Immature Gran % (Auto) 0.3 (0.0-0.4) % Neut % (Auto) 61.8 (45-73) % Lymph % (Auto) 28.7 (20-40) % [place] % (Auto) 6.9 (2-11) % Eos % (Auto) 1.6 (0-4) % Baso % (Auto) 0.7 (0-2) % Lymph # (Auto) 2.9 (1.2-4.9) X10*3/uL [place] # (Auto) 0.7 (0.1-1.2) X10*3/uL Eos # (Auto) 0.2 (0.0-0.4) X10*3/uL Baso # (Auto) 0.1 (0.0-0.2) X10*3/uL Abs Immat Gran (auto) 0.03 (0.00-0.03) X10*3/uL Absolute Neuts (auto) 6.2 (2.0-8.3) x10*3/uL Absolute Nucleated RBC 0.000 (0.0-0.012) X10*3/uL Nucleated RBC % (auto) 0.0 (0.0-0.2) /100WBC Sodium 138 (135-145) mmol/L Potassium 4.0 (3.3-5.1) mmol/L Chloride 106 (96-108) mmol/L Carbon Dioxide 23 (22-29) mmol/L Anion Gap 13 (12-20) BUN 18 H (9-16) mg/dL Creatinine 0.71 (0.5-1.4) mg/dL Estim Creat Clear Calc 104.9 Estimated GFR > 60 Random Glucose 103 (60-115) mg/dL Calcium 9.8 (8.4-10.2) mg/dL Total Bilirubin 0.3 (0.0-1.0) mg/dL AST 21 (5-31) U/L ALT 31 (0-31) U/L Alkaline Phosphatase 76 (39-117) U/L Troponin I High Sens < 2.7 (<3.5-17.0) ng/L Total Protein 7.1 (6.5-8.0) g/dL Albumin 4.4 (3.5-5.0) g/dL Beta HCG, Quant < 2 mIU/mL Radiology Impression Discussion of test interpretation with radiology: I have reviewed the radiologist's reading. Discharge Plan Discharge Clinical Impression: Left maxillary sinusitis Patient Disposition: Home, Self-Care Instructions: Rhinosinusitis (ED) Additional Instructions: DISCHARGE DIAGNOSES: Severe left maxillary sinusitis despite 2 antibiotic courses HISTORY OF PRESENTATION: ?Severe left maxillary facial pain EMERGENCY DEPARTMENT COURSE,TESTS, TREATMENTS: While in the ED today breast which showed: We started Augmentin another antibiotic please take probiotics with this daily either hepl-xue-ekquobx or yogurt per day while on the treatment DISCHARGE MEDICATIONS: ?[We have made no changes to your regular medication regimen] bed at a prescription for Augmentin another antibiotic FOLLOW-UP: ?Call your primary or general physician soon as possible to discuss your symptoms, your ED visit and to discuss follow up plans [facility] ENT: [facility], [address],?[place]?[phone]:[phone] Call ENT for follow up you have trouble within this institution you can try ENT of [facility]:? INSTRUCTIONS ?& RETURN PRECAUTIONS: If any symptoms change first call your primary physician, if it is after-hours your primary doctors office should have a provider radiology interventional physician you can speak with. If the symptoms are severe or very concerning to you then call 911 or return to the ED. Use Neti pot [id number]-rurtqjk or saline nasal sprays. You can get [id number] Sudafed medication for decongestant and use oxymetazoline or Afrin spray to morning and evening not to exceed 3 days of this Bulmaro Gardner MD Emergency Physician [facility] Prescriptions: New amoxicillin-pot clavulanate 875-125 mg tablet 1 tab PO BID 7 Days Qty: 14 0RF oxycodone 5 mg tablet 5 mg PO Q6H PRN (Reason: pain) Qty: 3 0RF Rx Instructions: Partial Fill upon patient request. No Action amoxicillin-pot clavulanate [Augmentin] 875-125 mg tablet 1 tab PO BID Qty: 14 0RF ibuprofen 600 mg tablet 600 mg PO Q8H PRN (Reason: pain) Qty: 20 0RF hydrocodone-acetaminophen 5-325 mg tablet 1 tab PO Q6H PRN (Reason: pain) Qty: 8 0RF fluconazole [Diflucan] 150 mg tablet 150 mg PO ONCE Qty: 1 0RF cyclobenzaprine 5 mg tablet 5 mg PO TID PRN (Reason: muscle spasm) 7 Days Qty: 21 0RF propranolol 10 mg tablet 10 mg PO BID norethindrone acetate 5 mg tablet 5 mg PO DAILY fluticasone propionate [Flovent HFA] 110 mcg/actuation HFA aerosol inhaler 1 puff inhalation BID fluticasone propionate 50 mcg/actuation spray,suspension 2 spray intranasal DAILY cetirizine 10 mg tablet 10 mg PO DAILY PRN (Reason: allergies) omeprazole 40 mg capsule,delayed release(DR/EC) 40 mg PO DAILY sumatriptan succinate 50 mg tablet 50 mg PO atorvastatin 10 mg tablet 10 mg PO DAILY fluoxetine 40 mg capsule 80 mg PO DAILY gabapentin 100 mg capsule 400 mg PO BEDTIME Referrals: Juaquin Triana [Physician] - 2 days Stand Alone Forms: Work/School Release Interventions: ED Discharge Assessment Last Done: 07/24/24 14:53 Discharge Date/Time: 07/24/24 14:54 Print Language: Korean
--- NOTE | 2024-07-24 11:36 | ECG_ITS ---
Test Reason : LEFT SIDED NECK PAIN Blood Pressure : */* mmHG Vent. Rate : 108 BPM Atrial Rate : 108 BPM P-R Int : 126 ms QRS Dur : 74 ms QT Int : 328 ms P-R-T Axes : 35 17 16 degrees QTcB Int : 439 ms Sinus tachycardia Possible Left atrial enlargement Septal infarct , age undetermined Abnormal ECG No previous ECGs available Referred By: Jm Farmer Electronically Signed By: MAURO GOMEZ
[2024-07-24] MEDS: Ketorolac Tromethamine 15 MG/ML VIAL IVPUSH (12:14)
[2024-07-24] MEDS: Oxymetazoline HCl 0.05 % Nasal 15 ML SPRAY 2 SPRAY NOSTRIL-B (12:14)
[2024-07-24 13:14] LABS: MANUAL DIFF FLAG NO
[2024-07-24 13:26] LABS: Basophils Absolute Auto 0.1 X10*3/uL (0.0-0.2); Basophils Percent Auto 0.7 % (0-2); Eosinophils Absolute Auto 0.2 X10*3/uL (0.0-0.4); Eosinophils Percent Auto 1.6 % (0-4); Hematocrit 44.2 % (37.0-47.0); Hemoglobin 15.2 g/dl (12.0-16.0); Imm Gran Abs Auto 0.03 X10*3/uL (0.00-0.03); Imm Gran Pct Auto 0.3 % (0.0-0.4); Lymphocytes Absolute Auto 2.9 X10*3/uL (1.2-4.9); Lymphocytes Percent Auto 28.7 % (20-40); Mean Corpuscular HGB Conc 34.4 g/dl (31.0-35.0); Mean Corpuscular Hemoglobin 29.1 pg (27.0-33.0); Mean Corpuscular Volume 84.5 fL (80.0-98.0); Mean Platelet Volume 10.2 fL (9.4-12.3); Monocytes Absolute Auto 0.7 X10*3/uL (0.1-1.2); Monocytes Percent Auto 6.9 % (2-11); Neutrophils Absolute Auto 6.2 x10*3/uL (2.0-8.3); Neutrophils Percent Auto 61.8 % (45-73); Platelet Count 307 X10*3/uL (160-400); Red Blood Count 5.23 X10*6/uL (4.20-5.50); Red Cell Distribution Width 14.2 % (11.0-16.0)
--- OUTSIDE RECORDS SUMMARY | 2024-07-24 13:36 | XMS_ITS ---
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 Rivas - recommended Travell technique for PT & amitriptyline Fissure in ano 10/13/2021 Iron deficiency anemia due to chronic blood loss 09/15/2021 Chest pain 04/16/2021 Overview (03/19/2024): Last Assessment & Plan: Patient with complaints of intermittent spontaneous chest discomfort. This improves with the use of nonsteroidals and is very atypical for underlying angina. She had a stress test done that was normal I reassured her that the pain is most likely noncardiac. Fact the patient developed gastritis most likely secondary to the use of nonsteroidals. Patient's chest pain is very atypical and not anginal in characteristic. At this point I do not feel the patient needs any further cardiac evaluation or follow-up based on the negative results of her work-up today. With a stable Holter and a negative stress echocardiogram is unlikely there being any significant underlying cardiac issues at this time Palpitations 04/16/2021 Overview (03/19/2024): Last Assessment & Plan: Patient complains of palpitations that occur variably not exertional in nature not at rest due to excessive caffeine use or stimulants. No sinus medications no nasal sprays. No street drugs. 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 Past Plans No past plan information found. Radiation Treatments * No radiation treatments are documented for this patient in [facility]. Treatments may have been administered in another system. Lifetime Dose Tracking * Chemical Lifetime Dose Automatic Entry Manual Entr y CTDIvol 33.83 mGy 33.83 mGy 0 mGy
--- OUTSIDE RECORDS SUMMARY | 2024-07-24 13:36 | XMS_ITS | Clinical Summary ---
Author Organization [address] Address [address] [place] [phone] Phone Care Team Providers Care Prosthetics Lab Technician Name Role Phone Tarik Perez MD Primary Care Provider [phone] Allergies Active Allergy Reactions Criticality Noted Date Comments Meperidine Hcl Other 04/27/2013 Fever , low o2, heart rate increase Morphine Other 04/27/2013 Panic attacks Oxycodone-Acetaminophen Hives 04/27/2013 Sumatriptan 11/30/2022 Interacts with SSR Medications FLUoxetine (PROzac) 20 mg capsule TAKE 1 CAPSULE BY MOUTH ONCE A DAY IN ADDITION TO THE 40 MG FOR A TOTAL OF 50 MG 4 Active amitriptyline (ELAVIL) 10 mg tablet Take 3 Tablets by mouth daily. 4 Active amphetamine-de xtroamphetamin e (ADDERALL) 7.5 mg tablet TAKE 1 TABLET BY MOUTH TWICE A DAY TAKE IN THE MORNING AND MIDDAY 4 Active FLUoxetine (PROzac) 40 mg capsule Take 1 Capsule by mouth daily. Active norethindrone (AYGESTIN) 5 mg tablet Take 5 mg by mouth daily. 1 Active amphetamine-de xtroamphetamin e (ADDERALL) 10 mg tablet Take 1 tablet (10 mg total) by mouth 2 (two) times a day. B.H. Active atorvastatin (LIPITOR) 10 mg tablet Take 1 tablet (10 mg total) by mouth at bedtime. at bedtime. 90 tablet 1 5 Active cetirizine (ZyrTEC) 10 mg tablet Take 1 tablet (10 mg total) by mouth 1 (one) time each day if needed for allergies or rhinitis. 90 tablet 1 5 Active fluticasone propionate (FLONASE) 50 mcg/actuation nasal spray Administer 2 sprays into each nostril 1 (one) time each day. Shake gently. Before first use, prime pump. After use, clean tip and replace cap. 16 g 1 5 Active pantoprazole (PROTONIX) 40 mg EC tablet Take 1 tablet (40 mg total) by mouth 1 (one) time each day. Do not crush, chew, or split. 90 tablet 1 5 Active levoFLOXacin (LEVAQUIN) 750 mg tablet Take 1 tablet (750 mg total) by mouth 1 (one) time each day. 10 tablet 5 Active predniSONE (DELTASONE) 10 mg tablet Take 2 tabs PO daily for 3 days then 1 tab PO daily for 4 days 10 tablet 5 Active sulfamethoxazo le-trimethopri m (BACTRIM DS,SEPTRA DS) 800-160 mg per tablet Take 1 tablet by mouth 2 (two) times a day for 10 days. 20 each 5 06/25/19 25 predniSONE (DELTASONE) 20 mg tablet Take 1 tablet (20 mg total) by mouth 1 (one) time each day. 3 tabs po x 3 days then 2 tabs po x 3 days then one tab po x 3 days 30 each 5 5 07/04/19 25 Discontinu ed(Therapy completed) Active Problems Problem Noted Date Diagnosed Date [...] reflux disease) 5 Anxiety 04/27/2013 Asthma 09/01/2005 Encounters Date Type Department Care Team Description 07/06/2024 Telephone Adult Medicine [address] [phone] Tarik Perez MD call back; Sinusitis 07/05/2024 8:06 AM EDT - 07/05/2024 11:59 PM EDT Hospital Encounter CT [facility] [id number] [place] [address] Recurrent sinusitis Discharge Disposition: Home or Self Care 07/03/2024 4:00 PM EDT Office Visit Adult Medicine [address] [phone] Delphine Elizabeth PA Recurrent sinusitis (Primary Dx) 07/02/2024 Telephone Adult [address] [phone] Tarik Perez MD facial pressure 06/19/2024 Telephone Adult [address] [phone] Noemi Samayoa RN 06/14/2024 11:30 AM EDT Office Visit [address] [phone] Tarik Perez MD Sinusitis, unspecified chronicity, unspecified location (Primary Dx); Encounter for long-term (current) use of medications; High cholesterol; Bronchitis; Asthma with status asthmaticus, unspecified asthma severity, unspecified whether persistent; Tachycardia 06/14/2024 Telephone Adult [address] [phone] Tarik Perez MD Facial Pain; URI from Last 3 Months Immunizations Name Administration Dates Next Due H1N1 Inj Preservative Free 01/17/2009 Hep B, Unspecified 10/15/2021 Hepatitis B (Grtivah-L-Hugtp , Recombivax HB-Adult) 19yo and older 10/20/2021 Influenza Quadravalent, MDCK , 0.5ml, preservative free (Flucelvax) 6mo and older 01/16/2019 Influenza Quadravalent, MDCK , 0.5ml, with preservative (Flucelvax) 6mo and older 02/26/2020 Influenza trivalent, 0.5mL, preservative free (Fluarix; FluLaval; Fluzone) ages 6mo and older (Afluria) 3 years and older 01/30/2016,03/10/2015,12/03/2008 Influenza trivalent, with pr eservative (Fluzone; Afluria) 6mo and older 01/20/2012 Influenza, Unspecified 12/12/2020,01/16/2019 Measles 10/15/2021 Meningococcal MCV4P 10/20/2021 Moderna SARS-CoV-2 COVID-19, mRNA, LNP-S, preservative free 01/17/2021 Mumps 10/15/2021 PPD Test 11/14/2013,08/21/2013 Rubella 10/15/2021 Tdap Tetanus diptheria acell ular pertussis (Boostrix; Adacel) 7yo and older 04/12/2012,12/19/2010,03/21/2010 Surgical History Surgery Date Site/Laterality Comments APPENDECTOMY 03/21/2004 PROCEDURE: HISTORICAL APPENDECTOMY COLONOSCOPY 11/07/2014 PROCEDURE: FL COLONOSCOPY FLX DX W/COLLJ SPEC WHEN PFRMD; COMMENT: internal/external hemorrhoids TUBAL LIGATION 03/21/2015 PROCEDURE: HISTORICAL TUBAL LIGATION OTHER SURGICAL HISTORY 06/19/2015 Right PROCEDURE: HISTORICAL SUBTOTAL THYROIDECTOMY; COMMENT: r thyroid lobectomy OTHER SURGICAL HISTORY PROCEDURE: CERVICAL LEEP CONE BIOPSY [facility] PATHOLOGY EX; COMMENT: x 2 Medical History Medical History Date Comments Nephrolithiasis DX:Nephrolithias is Cervical dysplasia DX:Cervical d ysplasia; COMMENT: high grade, q 6 mo pap OCD (obsessive compulsive disorder) DX:OCD (obsessive compulsive disorder) Rectal bleeding 10/28/2014 DX:Rectal bleedi ng 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 DX:BRCA1 negativ e; COMMENT: [facility] Family History Medical History Relation Name Comments Other: drug overdose Mother alcohol and morphine Crohn's disease Son Relation Name Status Comments Mother drug overdose Son Alive Social History Tobacco Use Types Packs/Day Years Used Date Smoking Tobacco: Former Cigarettes 0.5 25.3 S tarted: 03/21/1999 Smokeless Tobacco: Never Tobacco Cessation:Counseling Given: Not Answered Alcohol Use Standard Drinks/Week Comments Not Currently 0 (1 standard drink = 0.6 oz pur e alcohol) Comments No Sex and Gender Information Value Date Recorded Sex Assigned at Not on file Legal Sex Female 2:01 AM EST Gender Identity Not on file Sexual Orientation Not on file Obstetrics History Last Filed Vital Signs Vital Sign Reading Time Taken Comments Blood Pressure 130/70 07/03/2024 4:02 PM EDT Pulse 68 07/03/2024 4:02 PM EDT Temperature 36.7 ??C (98 ??F) 07/03/2024 4:02 PM EDT Respiratory Rate 16 07/03/2024 4:02 PM EDT Oxygen Saturation - - Inhaled Oxygen Concentration - - Weight 80.3 kg (177 lb) 07/03/2024 4:02 PM EDT Height 154.9 cm (5' 1 ) 07/03/2024 4:02 PM EDT Body Mass Index 33.44 07/03/2024 4:02 PM EDT Plan of Treatment Health Maintenance Due Date Last Done Comments Pneumococcal Vaccine: Pediatrics (0 to 5 Years) and At-Risk Patients (6 to 64 Years) (1 of 2 - PCV) 2006 Cervical Cancer Screening: Pap Smear 05/19/2018 05/20/2015, 05/20/2015 Hepatitis B Vaccines (2 of 3 - 19+ 3-dose series) 11/17/2021 10/20/2021, 10/15/2021 Depression Screening 02/27/2022 HIV Screening 02/27/2022 Hepatitis C Screening 02/27/2022 Social Influencers of Health Screening 02/27/2022 Cholesterol Screening (Lipid Panel) 06/14/2029 06/14/2024, 09/28/2023, 09/28/2023 DTaP,Tdap,and Td Vaccines (5 - Td or Tdap) 01/17/2032 01/16/2022, 04/12/2012, 12/19/2010, Additional history exists Meningococcal ACWY Vaccine Aged Out 10/20/2021 N o longer eligible based on patient's age to complete this topic COVID-19 Vaccine Completed 12/24/2023, , 01/17/2021, Additional history exists Influenza Vaccine Completed 12/24/2023, , 01/16/2022, Additional history exists HIB Vaccines Aged Out No longer eligi ble based on patient's age to complete this topic HPV Vaccines Aged Out No longer eligi ble based on patient's age to complete this topic Hepatitis A Vaccines Aged Out No long er eligible based on patient's age to complete this topic IPV Vaccines Aged Out No longer eligi ble based on patient's age to complete this topic MMR Vaccines Aged Out No longer eligi ble based on patient's age to complete this topic Meningococcal B Vaccine Aged Out No l onger eligible based on patient's age to complete this topic RSV Immunization Patients Under 20 months Aged Out No longer eligible based on patient's age to complete this topic Varicella Vaccines Aged Out No longer eligible based on patient's age to complete this topic Procedures Procedure Name Priority Date/Time Associated Diagnosis Comments CT SINUSES WO CONTRAST Routine 8:15 AM EDT Recurrent sinusitis LIPID PANEL WITH REFLEX TO DIRECT LDL Routine 06/14/2024 12:04 PM EDT High cholesterol COMPREHENSIVE METABOLIC PANEL Routine 06/14/2024 12:04 PM EDT Encounter for long-term (current) use of medications HM HPV Routine 05/20/2015 from Last 3 Months or Most Recently Relevant to Health Maintenance Results * CT Sinuses wo Contrast (07/05/2024 8:15 AM EDT) Anatomical Region Laterality Modality Head and Neck Computed Tomogra phy 07/05/2024 8:36 AM EDT Impressions 07/05/2024 9:02 AM EDT Near complete opacification of the left maxillary sinus, with obliteration of the left maxillary infundibulum. ??Remaining paranasal sinuses are essentially clear. -------- FINAL REPORT -------- Dictated By: Francine Greenfield Dictated Date: 07/05/2024 08:36 ET Assigned Physician: Francine Greenfield Reviewed and Electronically Signed By: Francine Greenfield Signed Date: 07/05/2024 09:02 ET Workstation ID: [id number] Transcribed By: Self Edit Transcribed Date: 07/05/2024 08:36 ET Narrative 07/05/2024 9:[address] SINUSES WO CONTRAST TECHNIQUE: Multidetector-row CT of the sinuses was performed without administration of intravenous contrast. Images were reconstructed in the axial, coronal, and sagittal planes. COMPARISON: None HISTORY: Recurrent, persistent sinusitis. FINDINGS: Frontal sinuses: Right frontal sinus is clear. ??Very minimal mucosal thickening of the left frontal sinus. Anterior and posterior ethmoid air cells: Minimal mucosal thickening of a few left anterior ethmoid air cells. ??Remainder ethmoid air cells are clear. ?? Maxillary sinuses and infundibula: Right maxillary sinus is clear and right infundibulum is patent. ??Near-complete opacification of the left maxillary sinus and obliteration of the ostium of the left infundibulum. Sphenoid sinuses: Clear Nasal cavity: Right eun bullosa (middle turbinate pneumatization), normal variant. ??Nasal septum is essentially midline. Temporomandibular joints: Intact Procedure Note Francine Greenfield MD - 07/05/2024 CT SINUSES WO CONTRAST TECHNIQUE: Multidetector-row CT of the sinuses was performed withoutadministration of intravenous contrast. Images were reconstructed in theaxial, coronal, and sagittal planes. COMPARISON: None HISTORY: Recurrent, persistent sinusitis. FINDINGS: Frontal sinuses: Right frontal sinus is clear. Very minimal mucosalthickening of the left frontal sinus. Anterior and posterior ethmoid air cells: Minimal mucosal thickening of afew left anterior ethmoid air cells. Remainder ethmoid air cells areclear. Maxillary sinuses and infundibula: Right maxillary sinus is clear andright infundibulum is patent. Near-complete opacification of the leftmaxillary sinus and obliteration of the ostium of the left infundibulum. Sphenoid sinuses: Clear Nasal cavity: Right eun bullosa (middle turbinate pneumatization),normal variant. Nasal septum is essentially midline. Temporomandibular joints: Intact IMPRESSION: Near complete opacification of the left maxillary sinus, with obliterationof the left maxillary infundibulum. Remaining paranasal sinuses areessentially clear. -------- FINAL REPORT -------- Dictated By: Francine Greenfield Dictated Date: 07/05/2024 08:36 ET Assigned Physician: Francine Greenfield Reviewed and Electronically Signed By: Francine Greenfield Signed Date: 07/05/2024 09:02 ET Workstation ID: [id number] Transcribed By: Self Edit Transcribed Date: 07/05/2024 08:36 ET us Delphine GOODE IMG CT PROCEDURES Final Result * (ABNORMAL) Lipid panel with reflex to direct LDL (06/14/2024 12:04 PM EDT) Cholesterol 196 0 - 200 mg/dL LAB CHEMISTRY METHOD 06/14/2024 4:05 PM EDT [facility] Triglycerides 68 0 - 150 mg/dL LAB CHEMISTRY METHOD 06/14/2024 4:05 PM EDT [facility] HDL 36(L) >=40 mg/dL LAB CHEMISTRY METHOD 06/14/2024 4:05 PM EDT [facility] LDL Calculated 146(H) 0 - 100 mg/dL LAB CHEMISTRY METHOD 06/14/2024 4:05 PM EDT [facility] VLDL Cholesterol Filiberto 13.6 mg/dL LAB CHEMISTRY METHOD 06/14/2024 4:05 PM EDT [facility] Non HDL Chol. (LDL+VLDL) 160(H) <145 mg/dL LAB CHEMISTRY METHOD 06/14/2024 4:05 PM EDT [facility] Chol/HDL Ratio 5.4(H) 0.0 - 4.4 LAB CHEMISTRY METHOD 06/14/2024 4:05 PM EDT [facility] Blood Venous blood specimen / Unknown Venipuncture / Unknown 06/14/2024 12:04 PM EDT 06/14/2024 12:04 PM EDT us Tarik Perez MD LAB BLOOD ORDERABLES Final Resu lt [facility] [address] [place] [address], [place] [phone] * (ABNORMAL) Comprehensive metabolic panel (06/14/2024 12:04 PM EDT) Sodium 135 133 - 145 mmol/L LAB CHEMISTRY METHOD 06/14/2024 4:05 PM [facility] Potassium 4.5 3.5 - 5.5 mmol/L LAB CHEMISTRY METHOD 06/14/2024 4:05 PM [facility] Chloride 103 96 - 110 mmol/L LAB CHEMISTRY METHOD 06/14/2024 4:05 PM [facility] CO2 26 21 - 32 mmol/L LAB CHEMISTRY METHOD 06/14/2024 4:05 PM [facility] Anion Gap 6 3 - 11 LAB CHEMISTRY METHOD 06/14/2024 4:05 PM [facility] Glucose 110(H) 70 - 100 mg/dL LAB CHEMISTRY METHOD 06/14/2024 4:05 PM [facility] BUN 16 5 - 25 mg/dL LAB CHEMISTRY METHOD 06/14/2024 4:05 PM [facility] Creatinine 0.81 0.50 - 1.10 mg/dL LAB CHEMISTRY METHOD 06/14/2024 4:05 PM [facility] eGFR 96 >=60 mL/min/1. 73m2 LAB CHEMISTRY METHOD 06/14/2024 4:05 PM [facility] Comment:Calculation based on the??Chronic Kidney Disease Epidemiology Collaboration (CKD-EPI) equation refit??without adjustment for race. BUN/Creatinine Ratio 19.8 LAB CHEMISTRY METHOD 06/14/2024 4:05 PM [facility] Calcium 9.5 8.5 - 10.5 mg/dL LAB CHEMISTRY METHOD 06/14/2024 4:05 PM [facility] AST (SGOT) 21 10 - 42 unit/L LAB CHEMISTRY METHOD 06/14/2024 4:05 PM [facility] ALT (SGPT) 54 10 - 60 unit/L LAB CHEMISTRY METHOD 06/14/2024 4:05 PM [facility] Alkaline Phosphatase 84 42 - 121 unit/L LAB CHEMISTRY METHOD 06/14/2024 4:05 PM EDT [facility] Total Protein 7.1 6.0 - 8.0 g/dL LAB CHEMISTRY METHOD 06/14/2024 4:05 PM EDT [facility] Albumin 3.9 3.2 - 5.0 g/dL LAB CHEMISTRY METHOD 06/14/2024 4:05 PM EDT [facility] Total Bilirubin 0.3 0.0 - 1.4 mg/dL LAB CHEMISTRY METHOD 06/14/2024 4:05 PM EDT [facility] Blood Venous blood specimen / Unknown Venipuncture / Unknown 06/14/2024 12:04 PM EDT 06/14/2024 12:04 PM EDT Tarik Perez MD LAB BLOOD ORDERABLES Final Resu lt [facility] [address] [place] [address], * Cervical Cancer Screening: HPV (05/20/2015) Pathologist Critical access hospital Cervical Cancer Screening: HPV No interpretation , abstracted Historical Provider HEALTH MAINTENANCE Final Result from Last 3 Months or Most Recently Relevant to Health Maintenance [place] [address] [place] [address] Advance Directives Documents on File Type Date Recorded Patient Economic Historian Expl anation Health Care Decision (hx) 03/29/2023 AD AHN DIRECTIVE Health Care Decision (hx) 03/29/2023 AD AHN DIRECTIVE Health Care Decision (hx) 06/24/2015 AD AHN DIRECTIVE Health Care Decision (hx) 06/24/2015 AD AHN DIRECTIVE Health Care Decision (hx) 06/24/2015 AD AHN DIRECTIVE Health Care Decision (hx) 06/24/2015 AD AHN DIRECTIVE Health Care Decision (hx) 06/24/2015 AD AHN DIRECTIVE Health Care Decision (hx) 06/24/2015 AD AHN DIRECTIVE Health Care Decision (hx) 06/24/2015 AD AHN DIRECTIVE Health Care Decision (hx) 06/24/2015 AD AHN DIRECTIVE Health Care Decision (hx) 06/24/2015 AD AHN DIRECTIVE Health Care Decision (hx) 06/24/2015 AD AHN DIRECTIVE Health Care Decision (hx) 06/24/2015 AD AHN DIRECTIVE Health Care Decision (hx) 06/24/2015 AD AHN DIRECTIVE Health Care Decision (hx) 06/24/2015 AD AHN DIRECTIVE Health Care Decision (hx) 06/20/2015 AD AHN DIRECTIVE Health Care Decision (hx) 06/20/2015 AD AHN DIRECTIVE Health Care Decision (hx) 06/20/2015 AD AHN DIRECTIVE Health Care Decision (hx) 06/20/2015 AD AHN DIRECTIVE Health Care Decision (hx) 06/20/2015 AD AHN DIRECTIVE Health Care Decision (hx) 06/20/2015 AD AHN DIRECTIVE Health Care Decision (hx) 06/20/2015 AD AHN DIRECTIVE Health Care Decision (hx) 06/20/2015 AD AHN DIRECTIVE Health Care Decision (hx) 06/20/2015 AD AHN DIRECTIVE Health Care Decision (hx) 06/20/2015 AD AHN DIRECTIVE Health Care Decision (hx) 06/20/2015 AD AHN DIRECTIVE Health Care Decision (hx) 06/20/2015 AD AHN DIRECTIVE Health Care Decision (hx) 06/20/2015 AD AHN DIRECTIVE Care Teams Prosthetics Lab Technician Relationship Specialty Start Date End Date Tarik Perez MD [address] [place] [phone] ([place]) PCP - General Internal Medicine 07/22/20
[2024-07-24 13:39] LABS: Alanine Aminotransferase 31 U/L (0-31); Albumin Level 4.4 g/dL (3.5-5.0); Anion Gap 13 (12-20); Aspartate Amino Transferase 21 U/L (5-31); Bilirubin Total 0.3 mg/dL (0.0-1.0); Blood Urea Nitrogen 18 mg/dL (9-16); Calcium 9.8 mg/dL (8.4-10.2); Carbon Dioxide 23 mmol/L (22-29); Chloride 106 mmol/L (96-108); Creatinine Clr Calc Pharmacy 104.9; Estimated Glomerular Filt Rate > 60; Glucose Random 103 mg/dL (60-115); Sodium 138 mmol/L (135-145); Total Protein 7.1 g/dL (6.5-8.0)
[2024-07-24 13:43] LABS: Troponin-I High Sensitivity < 2.7 ng/L (<3.5-17.0)
[2024-07-24 13:52] LABS: HCG Quantitative < 2 mIU/mL
[2024-07-24] MEDS: iohexoL 350 MG/ML 100 ML INFUS..BTL IV (13:52)
[2024-07-24] MEDS: Amoxicillin/Potassium Clav 875 MG TABLET PO (14:32)
[2024-07-24 14:48] VITALS: BP 155/106; PULSE 111; RESP 20; TEMP 37.1; O2SAT 99
[2024-07-24 14:53] VITALS: BP 155/106; PULSE 111; RESP 20; TEMP 37.1; O2SAT 99
[2024-07-24 17:01] LABS: Alkaline Phosphatase 76 U/L (39-117)
== END 2024-07-24 14:54 | disposition home or self-care (01) ==
PROVIDERS: Physician Assistant; Emergency Provider Emergency Medicine; PCP Internal Medicine
DX: J32.0 Chronic maxillary sinusitis (principal); H57.12 Ocular pain, left eye; Z79.899 Other long term (current) drug therapy
CPT/HCPCS: 36415; 70487; 80053; 84484; 84702; 85025; 93005; 96374; 99283; 99284; J1885; Q9967

== ENCOUNTER → 2024-07-24 11:36 | Outpatient (BNV) | payer BC, SELFPAY | PROVIDERS: Emergency Provider Emergency Medicine; PCP Internal Medicine; Visit Provider Internal Medicine | DX: R00.0 Tachycardia, unspecified (principal) | CPT/HCPCS: 93010 ==

== ENCOUNTER → 2024-07-24 12:04 | Outpatient (BNV) | payer BC, SELFPAY | PROVIDERS: Emergency Provider Emergency Medicine; PCP Internal Medicine; Visit Provider Radiology Diagnostic Radiology | DX: J34.9 Unspecified disorder of nose and nasal sinuses (principal) | CPT/HCPCS: 70487 ==

== ENCOUNTER 2024-12-14 23:05 | Emergency (ER) | payer BC, SELFPAY ==
[2024-12-14 23:07] VITALS: BP 166/81; PULSE 132; RESP 20; TEMP 37.1; O2SAT 98; BMI 33.1
[2024-12-14 23:20] LABS: Hematocrit 41.8 % (37.0-47.0); Hemoglobin 14.4 g/dl (12.0-16.0); Imm Gran Abs Auto 0.04 X10*3/uL (0.00-0.03); Imm Gran Pct Auto 0.3 % (0.0-0.4); Lymphocytes Absolute Auto 2.9 X10*3/uL (1.2-4.9); MANUAL DIFF FLAG NO; Mean Corpuscular HGB Conc 34.4 g/dl (31.0-35.0); Mean Corpuscular Hemoglobin 28.1 pg (27.0-33.0); Mean Corpuscular Volume 81.6 fL (80.0-98.0); NRBC Abs Auto 0.000 X10*3/uL (0.0-0.012); NRBC Pct Auto 0.0 /100WBC (0.0-0.2); Platelet Count 295 X10*3/uL (160-400); Red Blood Count 5.12 X10*6/uL (4.20-5.50); White Blood Count 13.5 X10*3/uL (4.8-10.8)
--- OUTSIDE RECORDS SUMMARY | 2024-12-14 23:31 | XMS_ITS | Data Portability ---
Author Organization [place] - [facility], Allergy Address [address] [address] Assessment No assessment recorded. Plan of Treatment Reminders Order Date Submit Date Provider Last Modified By Organization Details Last Modified Time Details Appointments [facility] 30 2024 02:00P M MARY Carranza MD Not available Not available Not available Lab None recorded . Referral None recorded . Procedures None recorded . Surgeries None recorded . Imaging CT, sinuses, w/o contrast - please do not schedule until January eval for chronic sinusiti s 2024 025 [facility] [place], [facility], [facility] [address], [place], [address], 12/05/2024 10:57:33 Medication Orders predniso ne 10 mg tablet 2024 025 [facility] #[id number], [address] [place], [place], [id number], 12/03/2024 14:55:36 doxycycl ine hyclate 100 mg tablet 2024 025 [facility] #[id number], [address] [place], [place], [id number], 12/03/2024 14:55:36 Patient TargetsNo targets recorded. Patient InstructionsNo instructions recorded. Reason for Referral None Reported. Problems Name Problem SNOMED Code Status Onset Date Resolution Date Notes Provider Name and Address Organization Details Recorded Time Maxillary sinusitis 17534427 Active 025 MARY aCrranza MD [address] [address], [place], [address], [place] - [facility] 5 13:42:28 Dental abscess 739659280 Active 025 MARY Carranza MD [address] [address], [place], [address], [place] - [facility] 5 13:42:35 Ulcerative rhinitis 11682623 Active 025 MARY Carranza MD [address] [address], [place], [address], [place] - [facility] 14:52:20 Chronic sinusitis 54928974 Active 025 MARY Carranza MD [address] [address], [place], [address], [place] - [facility] 5 14:53:33 Allergic rhinitis caused by pollen 42421068 Active 025 Vadim pavon, [place] - [facility] 08:53:28 Problem Notes None recorded. Procedures Surgical History Date Name Laterality Status Provider Name and Address Organization Details Recorded Time 025 NasalEndoscopy_DP completed MARY SEGURA MD [address], [address], [place] - [facility] 12/03/2024 14:51:03 025 NasalEndoscopy_DP completed MARY SEGURA MD [address] [place] [address], [address], [place] - [facility] 07/25/2024 13:42:08 operation on fallopian tube completed Vadim Siddiqi [place] - [facility] 07/25/2024 13:22:20 loop electrosurgical excision procedure of cervix completed Vadim Siddiqi [place] - [facility] 07/25/2024 13:22:37 appendectomy completed Vadim Siddiqi [place] - [facility] 07/25/2024 13:22:52 Imaging Results None recorded. Procedure Notes None recorded. Medical Equipment None Reported. Medications Name Sig Start Date Stop Date Status Note LastModified by Organization Details LastModified Time fluoxetine 40 mg capsule TAKE 1 CAPSULE BY MOUTH DAILY active Not Available Not Available No t Available dextroamphe tamine-amph etamine 7.5 mg tablet TAKE 1 TABLET BY MOUTH TWICE A DAY TAKE IN THE MORNING AND MIDDAY active Not Available Not Available No t Available prednisone 10 mg tablet Take 4 tabs PO for 3 days then 2 tabs PO for 3 days then 1 tab PO for 3 days then stop 2024 active Not Available Not Available Not Avai lable cetirizine 10 mg tablet TAKE 1 TABLET BY MOUTH EVERY DAY NEEDED FOR ALLERGIES active Not Available Not Available No t Available atorvastati n 10 mg tablet TAKE 1 TABLET BY MOUTH EVERYDAY AT BEDTIME active Not Available Not Available No t Available dextroamphe tamine-amph etamine 10 mg tablet TAKE 1 TABLET BY MOUTH TWICE DAILY IN THE MORNING AND AT MIDDAY active Not Available Not Available No t Available divalproex 500 mg tablet,joaquim yed release TAKE 1 TABLET BY MOUTH AT BEDTIME IF NOT IMPROVED IN 2 WEEKS, TAKE 2 TABLETS AT BEDTIME active Not Available Not Available No t Available sulfamethox azole 800 mg-trimetho prim 160 mg tablet TAKE 1 TABLET BY MOUTH TWICE DAILY FOR 10 DAYS 12/03 completed Not Available Not Available Not Available oxycodone-a cetaminophe n 5 mg-325 mg tablet TAKE 1 TABLET BY MOUTH EVERY 6 HOURS NEEDED FOR PAIN active Not Available Not Available No t Available amitriptyli ne 10 mg tablet TAKE 1 TABLET BY MOUTH AT BEDTIME NEEDED . INCREASE BY 1/NIGHT/W K. TO 40 MG NIGHTLY active Not Available Not Available No t Available pantoprazol e 40 mg tablet,joaquim yed release TAKE 1 TABLET BY MOUTH EVERY DAY active Not Available Not Available No t Available mupirocin 2 % topical ointment APPLY A SMALL AMOUNT TO THE AFFECTED AREA BY TOPICAL ROUTE 3 TIMES PER DAY 2024 active Not Available Not Available Not Avai lable ibuprofen 600 mg tablet TAKE 1 TABLET BY MOUTH EVERY 6 TO 8 HOURS NEEDED FOR PAIN active Not Available Not Available No t Available fluoxetine 20 mg capsule TAKE 1 CAPSULE BY MOUTH DAILY IN ADDITION TO THE 40 MG FOR A TOTAL OF 50 MG active Not Available Not Available No t Available fluticasone propionate 50 mcg/actuati on nasal spray,suspe nsion SPRAY TWICE IN EACH NOSTRIL ONCE DAILY active Not Available Not Available No t Available doxycycline hyclate 100 mg tablet Take 1 tablet twice a day by oral route for 10 days. 2024 active Not Available Not Available Not Avai lable amoxicillin 875 mg-potassiu m clavulanate 125 mg tablet TAKE 1 TABLET BY MOUTH TWICE DAILY FOR 7 DAYS 12/03 completed Not Available Not Available Not Available oxycodone 5 mg tablet TAKE 1 TABLET BY MOUTH EVERY 6 HOURS NEEDED FOR PAIN active Not Available Not Available No t Available mupirocin active Not Available Not Janelle ilable Not Available Nurte ODT 75 [address] disintegr[address] ing tablet PLACE 1 TAB ON TOP OF TONGUE, ALLOW TO DISSOLVE, THEN SWALLOW NEEDED FOR MIGRAINE. MAX 1 DOSE/24H active Not Available Not Available No t Available Gallifrey 5 mg tablet TAKE 1 TABLET BY MOUTH DAILY active Not Available Not Available No t Available Vitals Date Recorded Body height Body mass index (BMI) Body weight Provider Name and Address Organization Details Last Updated DateTime 07/25/2024 154.94 cm 33.1 kg/m2 47875.66 g Vadim Siddiqi [place] - [facility] 07/25/2024 13:24:26 Date Recorded Body height Body mass index (BMI) Body weight Provider Name and Address Organization Details Last Updated DateTime 12/03/2024 154.94 cm 33.1 kg/m2 00163.66 g Vadim Siddiqi [facility] 12/03/2024 14:31:52 Social History Question Answer Notes LastModified by Organizat ion Details LastModified Time Tobacco Smoking Status Former Smoker Vadim pavon [place] - [facility] 07/25/2024 13:21:46 What Type Of Tombstone Erector Do You Use? None Information not available 12/03/2024 Do You Have Any Pets? Yes Information not available 12/03/2024 Are You Passively Exposed To Smoke? Yes Information not available 12/03/2024 Are There Any Smokers In Your House? Yes Information not available 12/03/2024 Sex: Unknown Functional Status Question Answer Note LastModified by Organization Details LastModified Time Do you use any illicit or recreational drugs? No Information not available 12/03/2024 Do you or have you ever used any other forms of tobacco or nicotine? No Information not available 12/03/2024 What is your level of alcohol consumption? None Information not available 12/03/2024 What type of noise exposure are you exposed to? noExposureToExcessiveNoise Infor mation not available 12/03/2024 Mental Status None recorded. Family History Nothing Reported. Medical History Condition Response Allergies/Hayfever Y Heart Problems N Anxiety Y Tonsil Infections N Emphysema N Migraines Y Thyroid Problems N Glaucoma N Developmental Delay N Depression N COPD N Nasal or Sinus Problems Y Anemia Y Immune System Disorder N Anesthesia Complications N Heart Attack ([place]) N Other Skin Condition N Diabetes N Rhinitis N Bleeding Disorder N Food Allergy N Hearing Loss N Arthritis Y Hyperlipidemia Y Cancer N Stroke N Dementia N Nasal polyps N Asthma Y Sleep Disorder N High Cholesterol Y GERD/Reflux Y Liver Disease N Headaches Y Fibromyalgia Y Hypertension N Speech Delay N Kidney Disease N Gynecological HistoryNo gynecological history recorded. Obstetrics History GPAL:G 0 P 0 0 0 0 Past Encounters Encounter ID Performer Location Encounter Start Date Encounter Closed Date Diagnosis/Indication Diagnosis SNOMED-CT Code Diagnosis ICD10 Code Diagnosis IMO Codes Diagnosis Note [id number] MARY SEGURA MD [facility] [address] [address] 07/25/2024 13:16:20 07/25/2024 13:43:02 Maxillary sinusitis 34794761 J32.0 9712574 Likely odontogeni c in origin. I recommend addressing the obvious dental infection first followed by likely repeat imaging after another course of maximal medical therapy to see if we can clear the sinusitis with addressing the underlying dental nidus of infection. No purulence or polyps seen on nasal endoscopy. Dental abscess 516252739 K04.[address] sinus report from [place] which demonstrat es periapical lucencies related to tooth #13 and 14. I recommend she follow-up with her general dentist and possibly an oral surgeon to have the dental infection addressed. I suspect that her sinusitis is odontogeni c in nature. I discussed the for step for improving it is resolving the tooth infection. I will plan next available follow-up to reassess hopefully after which time she has met with her dentist and/or oral surgeon and had the tooth infection cleared. [id number] MARY SEGURA MD [facility] on [address] [place] [address] 12/03/2024 14:22:57 12/03/2024 14:52:32 Maxillary sinusitis 19892273 J32.0 2074804 She is still symptomati c despite the tooth extraction . Nasal endoscopy was negative for purulence. I will treat her empiricall y for sinusitis with prednisone and doxycyclin e. I discussed the risk of avascular hip necrosis with prednisone and I discussed the risk of C. difficile with continued antibiotic s. She understand s and wants to proceed. I will plan a CT scan in 6 weeks to assess for persistent chronic sinusitis. Dental abscess [id number] K04.7 7822 She has had dental extraction and there is no active fistula. Ulcerative rhinitis 3666 9007 J34.81 092588 I recommend mupirocin for her right nasal vestibulit is. I discussed off label use. Health Concerns Section Related Observation LastModified by Organization Detai ls LastModified Time None Recorded Concern Status LastModified by Organization Details LastModified Time None Recorded Advance Directives Directive None Recorded Payers Insurance Date Sequence Insurance Name Policy Number Policy Roberts Covered Member ID Roberts Member ID Guarantor Name 10/12/2024 1 [employer] (PPO) [id number] Ilya Pielecha [id number] [address] Pielecha 12/03/[address] [facility] ([place] [id number] Ilya L Pielecha [id number] L Pielecha Notes Date Note Type Note Provider Name and Address Organization Details Recorded Time 07/25/2024 text/html ROS as noted in the HPI She had a viral URI which was followed by sinusitis. She was initially treated with bactrim and prednisone. It did not improve and so she had a second round of prednisone with Levaquin. Her symptoms persisted over the last several months and worsened yesterday when she went to the [place] emergency room and had a CT sinus which demonstrated left maxillary complete opacification with periapical lucency of tooth 13 and 14 consistent with odontogenic sinusitis. She was suggested to see an oral surgeon. She was also suggested to follow-up with us. She had a prior CT as well which I do not have access to which she said showed sinusitis. MARY SEGURA MD [address], [address], [place] - [facility] 07/25/2024 13:44:11 12/03/2024 text/html ROS as noted in the HPI She has a history of left odontogenic sinusitis. CT sinus which demonstrated left maxillary complete opacification with periapical lucency of tooth 13 and 14 consistent with odontogenic sinusitis. She had a tooth pulled and a root canal on the tooth next to it. She reports she did get some temporary benefit from the tooth extraction but she still feels she has a sinus infection. She has left frontal and maxillary pressure. She has discolored, foul smelling mucus. She hasn't been on abx since her tooth extraction. MARY SEGURA MD [address] [place] [address],[address] [address], [place], [address], [facility] - [facility] 12/03/2024 14:55:30 OBGyn Episode No OBEpisode recorded.
--- OUTSIDE RECORDS SUMMARY | 2024-12-14 23:31 | XMS_ITS | Encounter Summary ---
Author Organization [facility] Address [address] [place] [address] Care Team Providers Care Grounds/Maintenance Specialist Name Role Phone Tarik Perez MD Primary Care Provider [phone] Reason for Visit * Reason Onset Date Comments Med Refill 11/20/2024 Encounter Details Date Type Department Care Team ([facility] st Contact Info) Description 11/20/2024 Telephone Adult Medicine [address] [phone] Tarik Perez MD [address] [place] [address] Social History Tobacco Use Types Packs/Day Years Used Date Smoking Tobacco: Former Cigarettes 0.5 25.7 S tarted: 03/21/1999 Smokeless Tobacco: Never Alcohol Use Standard Drinks/Week Comments Not Currently 0 (1 standard drink = 0.6 oz pur e alcohol) Comments No Sex and Gender Information Value Date Recorded Sex Assigned at Not on file Legal Sex Female 2:01 AM EST Gender Identity Not on file Sexual Orientation Not on file documented as of this encounter Progress Notes * RUSSEL Cam - 12/07/2024 3:15 PM EDT Patient was seen by me for physical 11/29/2024. Reported receiving Depakote for migraine prevention from Dr. Díaz ([facility]) who has since retired. States he provided her with a year supply. She was not sure of dosing and I did not have notes available for review which I would need to determine which dose she was taking in order to discuss this with PCP. Patient was referred to neurology duringour visit. Can notes from [facility] neurology be obtained? Please provide patient new referral information so that she can schedule an appointment * Alison Lacey - 12/06/2024 4:33 PM EDT Patient saw Che on 11/29/24. Please advise - was this discussed? * Katelynn Lorenz - 11/20/2024 12:12 PM EDT Refills not on Current Medication List Patient would like script to be: E-PRESCRIBED/FAXED TO PHARMACY BY THE END OF THE DAY WHEN WAS THE PATIENT'S LAST APPOINTMENT IN ADULT MEDICINE? 06/2024 WHEN WAS THE LAST TIME THE PATIENT SAW THEIR PCP? Same as above Does patient have an upcoming appointment? Yes 11/29/2024 (THE MEDICATION REQUESTED IS NOT ON THE MED LIST ABOVE) All of the medications requested were on the CURRENT MEDS list PREFERRED PHARMACY: [id number] [address] [address] [address] [facility] [address] DÍAZ - RETIRED Med name: DEPAKOTE Dosage: 500 MG # of tablets: 90 Instructions: TAKE 1 AT BEDTIME Is this a mail order prescription request?: no Did you check the Pharmacy information above?: yes Patients current insurance carrier is: Payor: [facility] / Plan: [facility] PPO / Product Type: *No Product type* / Insurance ID #: @[id number]@ documented in this encounter Plan of Treatment Upcoming Encounters Date Type Department Care Team (Late st Contact Info) Description 01/03/2025 3:30 PM EDT Office Visit Adult Medicine [address] [phone] Jordan Brown PA [address] [place] [address] documented as of this encounter Visit Diagnoses Not on filedocumented in this encounter Care Teams Grounds/Maintenance Specialist Relationship Specialty Start Date End Date Tarik Perez MD [address] [place] [address] PCP - General Internal Medicine 07/22/20 documented as of this encounter
--- OUTSIDE RECORDS SUMMARY | 2024-12-14 23:31 | XMS_ITS ---
Author Organization [facility] [address] [place] [address] [place] [address] Phone Care Team Providers Care Livestock Breeder Name Role Phone Tarik Perez MD Primary Care Provider [phone] Active Problems Problem Noted Date Diagnosed Date [...] treatments are [facility]. Treatments may have been administered in another system. Lifetime Dose Tracking * Chemical Lifetime Dose Automatic Entry Manual Entr y CTDIvol 33.83 mGy 33.83 mGy 0 mGy
--- OUTSIDE RECORDS SUMMARY | 2024-12-14 23:31 | XMS_ITS ---
Author Name [facility] Organization Unknown Care Team Organization Name Specialty Phone Email Start Date End Da te [facility] ALEJANDRA PEDROZA Primary Care 12/22/2022 [facility] Alejandrina Juarez Primary Care 01/26/20222023
--- OUTSIDE RECORDS SUMMARY | 2024-12-14 23:31 | XMS_ITS | Clinical Summary ---
Author Organization [facility] [address] [place] [address] [place] [phone] Phone Care Team Providers Care Fuel Management Handler Name Role Phone Tarik Perez MD Primary Care Provider [phone] Allergies Active Allergy Reactions Criticality Noted Date Comments Meperidine Hcl Other 04/27/2013 Fever , low o2, heart rate increase Morphine Other 04/27/2013 Panic attacks Oxycodone-Acetaminophen Hives 04/27/2013 Sumatriptan 11/30/2022 Interacts with SSR Medications FLUoxetine (PROzac) 20 mg capsule TAKE 1 CAPSULE BY MOUTH ONCE A DAY IN ADDITION TO THE 40 MG FOR A TOTAL OF 50 MG 08/29/19 24 Active FLUoxetine (PROzac) 40 mg capsule Take 1 Capsule by mouth daily. Active norethindrone (AYGESTIN) 5 mg tablet Take 5 mg by mouth daily. 11/06/19 21 Active amphetamine-de xtroamphetamin e (ADDERALL) 10 mg tablet Take 1 tablet (10 mg total) by mouth 2 (two) times a day. B.H. Active atorvastatin (LIPITOR) 10 mg tablet Take 1 tablet (10 mg total) by mouth at bedtime. at bedtime. 90 tablet 1 06/15/19 25 Active cetirizine (ZyrTEC) 10 mg tablet Take 1 tablet (10 mg total) by mouth 1 (one) time each day if needed for allergies or rhinitis. 90 tablet 1 06/15/19 25 Active fluticasone propionate (FLONASE) 50 mcg/actuation nasal spray SPRAY TWICE IN EACH NOSTRIL ONCE DAILY 16 g 2 08/11/19 25 Active pantoprazole (PROTONIX) 40 mg EC tablet Take 1 tablet (40 mg total) by mouth 1 (one) time each day. DO NOT CRUSH CHEW OR SPLIT 90 tablet 1 12/15/19 25 Active amitriptyline (ELAVIL) 10 mg tablet Take 3 Tablets by mouth daily. 06/13/19 025 Discontinued amphetamine-de xtroamphetamin e (ADDERALL) 7.5 mg tablet TAKE 1 TABLET BY MOUTH TWICE A DAY TAKE IN THE MORNING AND MIDDAY 06/23/19 025 Discontinued pantoprazole (PROTONIX) 40 mg EC tablet Take 1 tablet (40 mg total) by mouth 1 (one) time each day. Do not crush, chew, or split. 90 tablet 1 06/15/19 025 Discontinued levoFLOXacin (LEVAQUIN) 750 mg tablet Take 1 tablet (750 mg total) by mouth 1 (one) time each day. 10 tablet 07/04/19 025 Discontinued predniSONE (DELTASONE) 10 mg tablet Take 2 tabs PO daily for 3 days then 1 tab PO daily for 4 days 10 tablet 07/04/19 025 Discontinued Active Problems Problem Noted Date Diagnosed Date [...] Encounters Date Type Department Care Team Description 11/29/2024 2:00 PM EDT Office Visit Adult Medicine [address] [phone] Jordan Brown PA Routine history and physical examination of adult (Primary Dx); Screening for diabetes mellitus; Migraine without status migrainosus, not intractable, unspecified migraine type; Screening for thyroid disorder; Anxiety; Dyslipidemia; Elevated blood pressure reading; Gastroesophageal reflux disease, unspecified whether esophagitis present; Facial pain; Mouth pain 11/20/2024 Telephone Adult Medicine [address] [phone] Tarik Perez MD 11/20/2024 Telephone Adult Medicine [address] [phone] Tarik Perez MD from Last 3 Months Immunizations Name Administration Dates Next Due H1N1 Inj Preservative Free 01/17/2009 Hep B, Unspecified 10/15/2021 Hepatitis B (Kftxlws-L-Ypdft , Recombivax HB-Adult) 19yo and older 10/20/2021 [...] 03/21/2004 PROCEDURE: HISTORICAL APPENDECTOMY COLONOSCOPY 11/07/2014 PROCEDURE: VA COLONOSCOPY FLX DX W/COLLJ SPEC WHEN PFRMD; [...] 25.7 S tarted: 03/21/1999 Smokeless Tobacco: Never Tobacco Cessation:Counseling Given: Not Answered Alcohol Use Standard Drinks/Week Comments Not Currently 0 (1 standard drink = 0.6 oz pur e alcohol) Housing Instability Answer Date Recorde d Are you worried that in the next 2 months you may not have stable housing? No 11/29/2024 Food Access & Nutrition Answer Date Rec orded Do you have access to a vari ety of food including fruits and vegetables? Yes 11/29/2024 Access to Healthcare Answer Date Record ed Within the last 3 months, ho w many times did you visit the emergency department for your medical care? 1 11/29/2024 Health Literacy Answer Date Recorded How often do you need to hav e someone help you when you read instructions, pamphlets, or other written material from your doctor or pharmacy? Never 11/29/2024 Caregiver: How often do you need to have someone help you when you read instructions, pamphlets, or other written material from your doctor or pharmacy? Not on file 11/29/2024 Financial Risk Answer Date Recorded How hard is it for you to pa y for the very basics like food, housing, medical care, and air conditioning / heating? Not very hard 11/29/2024 Transportation Answer Date Recorded Has the lack of transportati on kept you from meetings, work, or from getting things needed for daily living? No Has the lack of transportati on kept you from medical appointments or from getting medications? No 11/29/2024 Social Isolation Answer Date Recorded How often do you feel lonely or isolated from th ose around you? Never 11/29/2024 Food Risk Answer Date Recorded Within the past 12 months we worried whether our food would run out before we got money to buy more. Never true 11/29/2024 Within the past 12 months th e food we bought just didn't last and we didn't have money to get more. Never true 11/29/2024 Dependent Care Answer Date Recorded Do you need help finding or paying for care for your loved ones. For example, professor of early childhood education or elderly care for an older adult? No 11/29/2024 Education Answer Date Recorded Do you think completing more education or training, like finishing a GED, going to college, or learning a trade, would be helpful for you? No 11/29/2024 Employment and Income Answer Date Recor ded During the last four weeks, have you been actively looking for work? No 11/29/2024 Living Situation Answer Date Recorded What is your living situation? 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 file Not on file Not on file Obstetrics History Last Filed Vital Signs Vital Sign Reading Time Taken Comments Blood Pressure 138/90 11/29/2024 2:38 PM EDT Pulse 116 11/29/2024 2:03 PM EDT Temperature 35.7 C (96.2 F) 11/29/2024 2:03 PM EDT Respiratory Rate 16 07/03/2024 4:02 PM EDT Oxygen Saturation 98% 11/29/2024 2:03 PM EDT Inhaled Oxygen Concentration - - Weight 82.9 kg (182 lb 12.8 oz) 11/29/2024 2:03 PM EDT Height 154.9 cm (5' 0.98 ) 11/29/2024 2:03 PM ED T Body Mass Index 34.56 11/29/2024 2:03 PM EDT Plan of Treatment Upcoming Encounters Date Type Department Care Team (Late st Contact Info) Description 01/03/2025 3:30 PM EDT Office Visit Adult Medicine [address] [phone] Jordan Brown PA [address] [place] [address] Health Maintenance Due Date Last Done Comments Pneumococcal Vaccine: Pediatrics (0 to 5 Years) and At-Risk Patients (6 to 49 Years) (1 of 2 - PCV) 2006 Cervical Cancer Screening: Pap Smear 05/19/2018 05/20/2015, 05/20/2015 Hepatitis B Vaccines (2 of 3 - 19+ 3-dose series) 11/17/2021 10/20/2021, 10/15/2021 Influenza Vaccine (#1) 2024 , 12/15/2022, 01/16/2022, Additional history exists Social Influencers of Health Screening 11/29/2025 11/29/2024 Cholesterol Screening (Lipid Panel) 06/14/2029 06/14/2024, 09/28/2023, 09/28/2023 DTaP,Tdap,and Td Vaccines (5 - Td or Tdap) 01/17/2032 01/16/2022, 04/12/2012, 12/19/2010, Additional history exists RSV Immunization Adult Patients (1 - 1-dose 75+ series) 2062 Meningococcal ACWY Vaccine Aged Out 10/20/2021 N o longer eligible based on patient's age to complete this topic COVID-19 Vaccine Completed 12/24/2023, , 01/17/2021, Additional history exists Depression Screening Completed 11/29/2024 HIB Vaccines Aged Out No longer eligi ble based on patient's age to complete this topic HIV Screening Discontinued HPV Vaccines Aged Out No longer eligi ble based on patient's age to complete this topic Hepatitis A Vaccines Aged Out No long er eligible based on patient's age to complete this topic Hepatitis C Screening Discontinued IPV Vaccines Aged Out No longer eligi [...] Procedure Name Priority Date/Time Associated Diagnosis Comments LIPID PANEL WITH REFLEX TO DIRECT LDL Routine 06/14/2024 12:04 PM EDT High cholesterol HPV Routine 05/20/2015 from Last 3 Months or Most Recently Relevant to Health Maintenance Results * (ABNORMAL) Lipid panel with reflex to direct LDL (06/14/2024 12:04 PM EDT) Pathologist [facility] Cholesterol 196 0 - 200 mg/dL LAB CHEMISTRY METHOD 06/14/2024 4:05 PM EDT [facility] Triglycerides 68 0 - 150 mg/dL LAB CHEMISTRY METHOD 06/14/2024 4:05 PM EDT [facility] HDL 36(L) >=40 mg/dL LAB CHE[facility]STR[facility] LDL Calculated 146(H) 0 - 100 mg/dL LAB CHEMISTRY METHOD 06/14/2024 4:05 PM EDT [facility] VLDL Cholesterol Filiberto 13.6 mg/dL LAB CHEMISTRY METHOD 06/14/2024 4:05 PM EDT [facility] Non HDL Chol. (LDL+VLDL) 160(H) <145 mg/dL LAB CHEMISTRY METHOD 06/14/2024 4:05 PM EDT [facility] Chol/HDL Ratio 5.4(H) 0.0 - 4.4 LAB CHEMISTRY METHOD 06/14/2024 4:05 PM [facility] Blood Venous blood specimen / Unknown Venipuncture / Unknown 06/14/2024 12:04 PM EDT 06/14/2024 12:04 PM EDT us Tarik Perez MD LAB BLOOD ORDERABLES Final Resu lt [facility] [address] [place] [address], [place] [phone] * Cervical Cancer Screening: HPV (05/20/2015) Pathologist [facility] Cervical Cancer Screening: HPV No interpretation , abstracted us Historical Provider HEALTH MAINTENANCE Final Result from Last 3 Months or Most Recently Relevant to Health Maintenance Insurance [facility] Advance Directives Documents on File Type Date Recorded Patient Tool And Die Maker Level Five Expl anation Health Care Decision (hx) 03/29/2023 [...] (hx) 06/20/2015 AD AHN DIRECTIVE Care Teams Fuel Management Handler Relationship Specialty Start Date End Date Tarik Perez MD [address] [place] [phone] PCP - General Internal Medicine 07/22/20
[2024-12-14 23:34] LABS: Alanine Aminotransferase 44 U/L (0-31); Albumin Level 4.4 g/dL (3.5-5.0); Alkaline Phosphatase 88 U/L (39-117); Anion Gap 13 (12-20); Aspartate Amino Transferase 25 U/L (5-31); Blood Urea Nitrogen 20 mg/dL (9-16); Calcium 9.1 mg/dL (8.4-10.2); Carbon Dioxide 19 mmol/L (22-29); Chloride 114 mmol/L (96-108); Creatinine Clr Calc Pharmacy 83.5; Estimated Glomerular Filt Rate > 60; Potassium 4.3 mmol/L (3.3-5.1); Sodium 142 mmol/L (135-145); Total Protein 6.8 g/dL (6.5-8.0)
--- NOTE | 2024-12-15 00:18 | ED.GENADULT ---
HPI - General Adult General Chief complaint: Skin/Abscess/Foreign Body Stated complaint: jaw pain Time Seen by Provider: 12/15/24 00:18 Source: patient Limitations: no limitations History of Present Illness HPI narrative: 39-year-old female presents complaining of right-sided facial pain. Patient states that symptoms began while she was lying down on the right side yesterday. She reports symptoms had improved however when she once again laid down on that side she had increased pain. She does not recall history of previous similar symptoms. She does report that she has been dealing with chronic sinusitis that has been going on for over 6 months. Patient states she saw ENT for follow up within the last approximately 10 days. She was prescribed prednisone and doxycycline however she did not supervisor opening and picking those medications until yesterday. Patient states she started the prednisone today but not the doxycycline. In addition she has been taking [id number] medication without relief. She denies any fevers chills nausea or vomiting. Denies any trauma. Pain is isolated to the right side of the jaw, sharp and throbbing in nature. It radiates from the right dental region. Related Data Home Medications ?Medication ?Instructions ?Recorded ?Confirmed atorvastatin 10 mg tablet 10 mg PO DAILY 05/31/22 06/09/22 cetirizine 10 mg tablet 10 mg PO DAILY PRN allergies 05/31/22 06/09/22 fluticasone propionate 110 1 puff inhalation BID 05/31/22 06/09/22 mcg/actuation HFA aerosol inhaler (Flovent HFA) fluticasone propionate 50 2 spray intranasal DAILY 05/31/22 06/09/22 mcg/actuation nasal spray,suspension norethindrone acetate 5 mg tablet 5 mg PO DAILY 05/31/22 06/09/22 omeprazole 40 mg capsule,delayed 40 mg PO DAILY 05/31/22 06/09/22 release propranolol 10 mg tablet 10 mg PO BID 05/31/22 06/09/22 sumatriptan succinate 50 mg tablet 50 mg PO 05/31/22 06/09/22 fluoxetine 40 mg capsule 80 mg PO DAILY 06/09/22 06/09/22 gabapentin 100 mg capsule 400 mg PO BEDTIME 06/09/22 06/09/22 Previous Rx's ?Medication ?Instructions ?Recorded amoxicillin 875 mg-potassium 1 tab PO BID #14 tabs 08/08/20 clavulanate 125 mg tablet (Augmentin) fluconazole 150 mg tablet 150 mg PO ONCE #1 tab 08/08/20 (Diflucan) hydrocodone 5 mg-acetaminophen 325 1 tab PO Q6H PRN pain #8 tabs 08/08/20 mg tablet ibuprofen 600 mg tablet 600 mg PO Q8H PRN pain #20 tabs 08/08/20 cyclobenzaprine 5 mg tablet 5 mg PO TID PRN muscle spasm 7 09/17/22 days #21 tabs amoxicillin 875 mg-potassium 1 tab PO BID 7 days #14 tabs 07/24/24 clavulanate 125 mg tablet oxycodone 5 mg tablet 5 mg PO Q6H PRN pain #3 tabs 07/25/24 Allergies Allergy/AdvReac Type Severity Reaction Status Date / Time meperidine (From Demerol) AdvReac Unknown Unknown Verified 12/14/24 23:08 acetaminophen (From Percocet) AdvReac Palpitation Verified 12/14/24 23:08 s morphine AdvReac Palpitation Verified 12/14/24 23:08 s oxycodone (From Percocet) AdvReac Palpitation Verified 12/14/24 23:08 s From DEMEROL AdvReac Intermediate TACHYCARDIA Uncoded 12/14/24 23:08 Review of Systems Review of Systems: Yes all other systems are reviewed and are negative Constitutional: Constitutional: Denies headache(s) Eyes: Eyes: Denies change in vision ENT: Denies dry mouth, Denies ear discharge, Denies otalgia, Reports facial pain and Denies headache(s) Neurologic: Denies headache(s) [facility] Past Medical History Medical History Polyarthralgia Asthma Anxiety OCD (obsessive compulsive disorder) GERD (gastroesophageal reflux disease) Asthma Seasonal allergies Anxiety Surgical History H/O partial thyroidectomy H/O tubal ligation History of appendectomy History of subtotal thyroidectomy Hx of appendectomy Hx of colonoscopy Hx of tubal ligation Family History Family History Mother Substance abuse Alcohol abuse Social History Social History Alcohol intake: current Alcohol intake frequency: does not drink Patient Tobacco Use Status: Former Tobacco user Advance Directives: No Advance Directives Information Provided: No Physical Exam ED Vital Signs: Vital Signs - 24 hr 12/14/24 23:07 Temperature 98.7 F Pulse Rate 132 H Respiratory Rate 20 Blood Pressure 166/81 H Pulse Oximetry 98 Oxygen Delivery Method Room Air BMI result Body Mass Index 33.1 Const General: cooperative, alert and awake HENMT Other: Auditory canals are patent. TMs are pearly white without any fluid or erythema. Nares are patent. No evidence of epistaxis. Oropharynx is moist. Teeth are in good repair. There is no tenderness to tapping. Slight fullness to the right, in the area of the TMJ. Decreased range of motion of the mandible secondary to pain at the right TMJ. There was no crepitus. No submental or anterior cervical or other lymphadenopathy noted. There was no tongue elevation or edema. No stridor. No muffled voice. No drooling. Neck Other: Full range of motion. No Brudzinski Resp Other: Lung sounds clear throughout Skin Other: No skin changes to the face, jaw or neck. No erythema. No induration or vesicles. Medical Decision Making Medical Decision Making [facility] Narrative: 39-year-old female with history of right-sided facial pain. According to the patient's records, she has had similar issues in the past, related to dental, TMJ or sinusitis. At this time, the patient does not appear to have acute sinusitis. There may be some chronicity related to this and given that the patient has follow up with the ENT and prescribed prednisone and doxycycline, I have instructed the patient to continue with this prescribed treatment. Offered patient 1st dose of doxycycline now however if she has refused. She is hemodynamically stable and afebrile. There was no evidence of exam of abscess or cellulitis. No evidence of trauma to indicate fracture of the mandible. No dislocation, as the patient is able to move her jaw. Suspect possible underlying dental infection as well. Patient also reports that she has NSAIDs at home and will continue those. Patient expresses understanding of all discharge instructions and has no further questions at this time. In addition, patient has dental follow up. Differential Diagnosis Differential Diagnoses: The differential diagnosis associated with the presentation includes TMJ Dental caries Dental infection Sinusitis Contusion Lab Data [facility] Lab Attestation statement: I reviewed the patient's lab results. Labs with slight leukocytosis which could be related to patient's recent prednisone use. 12/14/24 23:12 12/14/24 23:12 Labs: Lab Results 12/14/24 Range/Units 23:12 WBC 13.5 H (4.8-10.8) X10*3/uL RBC 5.12 (4.20-5.50) X10*6/uL Hgb 14.4 (12.0-16.0) g/dl Hct 41.8 (37.0-47.0) % MCV 81.6 (80.0-98.0) fL MCH 28.1 (27.0-33.0) pg MCHC 34.4 (31.0-35.0) g/dl RDW 14.2 (11.0-16.0) % Plt Count 295 (160-400) X10*3/uL MPV 10.2 (9.4-12.3) fL Immature Gran % (Auto) 0.3 (0.0-0.4) % Neut % (Auto) 69.2 (45-73) % Lymph % (Auto) 21.5 (20-40) % [place] % (Auto) 7.5 (2-11) % Eos % (Auto) 0.8 (0-4) % Baso % (Auto) 0.7 (0-2) % Lymph # (Auto) 2.9 (1.2-4.9) X10*3/uL [place] # (Auto) 1.0 (0.1-1.2) X10*3/uL Eos # (Auto) 0.1 (0.0-0.4) X10*3/uL Baso # (Auto) 0.1 (0.0-0.2) X10*3/uL Abs Immat Gran (auto) 0.04 H (0.00-0.03) X10*3/uL Absolute Neuts (auto) 9.4 H (2.0-8.3) x10*3/uL Absolute Nucleated RBC 0.000 (0.0-0.012) X10*3/uL Nucleated RBC % (auto) 0.0 (0.0-0.2) /100WBC Sodium 142 (135-145) mmol/L Potassium 4.3 (3.3-5.1) mmol/L Chloride 114 H (96-108) mmol/L Carbon Dioxide 19 L (22-29) mmol/L Anion Gap 13 (12-20) BUN 20 H (9-16) mg/dL Creatinine 0.88 (0.5-1.4) mg/dL Estim Creat Clear Calc 83.5 Estimated GFR > 60 Random Glucose 163 H (60-115) mg/dL Calcium 9.1 D (8.4-10.2) mg/dL Total Bilirubin 0.3 (0.0-1.0) mg/dL AST 25 (5-31) U/L ALT 44 H (0-31) U/L Alkaline Phosphatase 88 (39-117) U/L Total Protein 6.8 (6.5-8.0) g/dL Albumin 4.4 (3.5-5.0) g/dL Discharge Plan Discharge Clinical Impression: Acute facial pain TMJ (dislocation of temporomandibular joint) Qualifiers: Encounter type: initial encounter Qualified Code(s): S03.00XA - Dislocation of jaw, unspecified side, initial encounter Patient Disposition: Home, Self-Care Instructions: Temporomandibular Disorder (ED), Toothache (ED) Additional Instructions: Take your prednisone and doxycycline as instructed by your ENT specialist. Follow up with your dentist. Call Tuesday morning for follow up appointment. You may take [id number]-pwo-[id number] medications such as Tylenol, ibuprofen or naproxen. Take as instructed and with food. Follow-up with your primary care provider. Call this week to schedule a follow-up appointment. Return to the emergency department if you have any worsening of symptoms, or any concerns. Get well soon! Prescriptions: No Action amoxicillin-pot clavulanate [Augmentin] 875-125 mg tablet 1 tab PO BID Qty: 14 0RF ibuprofen 600 mg tablet 600 mg PO Q8H PRN (Reason: pain) Qty: 20 0RF hydrocodone-acetaminophen 5-325 mg tablet 1 tab PO Q6H PRN (Reason: pain) Qty: 8 0RF fluconazole [Diflucan] 150 mg tablet 150 mg PO ONCE Qty: 1 0RF cyclobenzaprine 5 mg tablet 5 mg PO TID PRN (Reason: muscle spasm) 7 Days Qty: 21 0RF amoxicillin-pot clavulanate 875-125 mg tablet 1 tab PO BID 7 Days Qty: 14 0RF oxycodone 5 mg tablet 5 mg PO Q6H PRN (Reason: pain) Qty: 3 0RF Rx Instructions: Partial Fill upon patient request. propranolol 10 mg tablet 10 mg PO BID norethindrone acetate 5 mg tablet 5 mg PO DAILY fluticasone propionate [Flovent HFA] 110 mcg/actuation HFA aerosol inhaler 1 puff inhalation BID fluticasone propionate 50 mcg/actuation spray,suspension 2 spray intranasal DAILY cetirizine 10 mg tablet 10 mg PO DAILY PRN (Reason: allergies) omeprazole 40 mg capsule,delayed release(DR/EC) 40 mg PO DAILY sumatriptan succinate 50 mg tablet 50 mg PO atorvastatin 10 mg tablet 10 mg PO DAILY fluoxetine 40 mg capsule 80 mg PO DAILY gabapentin 100 mg capsule 400 mg PO BEDTIME Print Language: Kitt[place]
[2024-12-15 00:39] VITALS: BP 00/00; PULSE 0; RESP 18; TEMP -17.7; TEMP 0; O2SAT 0
== END 2024-12-15 01:00 | disposition home or self-care (01) ==
PROVIDERS: Emergency Provider Emergency Medicine; PCP Internal Medicine
DX: R68.84 Jaw pain (principal); J32.9 Chronic sinusitis, unspecified; J45.909 Unspecified asthma, uncomplicated; Z79.899 Other long term (current) drug therapy
CPT/HCPCS: 36415; 80053; 85025; 99282; 99283